=== PATIENT | male | born 1970 | race Caucasian/White ===

== ENCOUNTER 2021-02-02 07:01 | Inpatient (IN) | payer BC, SELFPAY ==
[2021-02-02] VITALS (23 sets, daily range): BP systolic 107–141; BP diastolic 65–81; PULSE 68–86; RESP 12–21; TEMP 35.6–37.1; O2SAT 93–100
--- NOTE | ~2021-02-02 | CT_ITS ---
EXAMINATION: CT abdomen pelvis w con DATE: 02/02/2021 08:40 INDICATION: Lower abdominal pain TECHNIQUE: Computed tomography (CT) of the abdomen and pelvis was performed with 100 cc Omnipaque 350 intravenous contrast. The dose-length product was 211.89 mGy-cm. Automated exposure control and iter ative reconstruction technique were employed. COMPARISON: None. FINDINGS: There is moderate free air, suspicious for bowel perforation. Heart size normal. No signifi cant pleural or pericardial effusion. Gallbladder is present. The liver, spleen, pancreas, adrenal gl ands and kidneys are unremarkable. There is a large amount of retained fecal material throughout the colon. No definite obstruction. There is ascites. There appears to be extraluminal fluid and mottled material in the pelvis, suspicious for localized perforation and this area. No discrete abscess is id entified.. There is bibasilar dependent atelectasis. Moderate lower lumbar spondylosis with spinal st enosis at L5-S1. IMPRESSION: 1. Mottled gas and fluid in the pelvis with moderate free intraperitoneal air, compatible with perfor ation. There is ascites. Exact site of perforation is not identified. 2: Fecal impaction of the colon. Dr. Junaid Ying discussed with Dr. Mirta Moser MD at 02/02/2021 08:44 CDT. Reviewed, dictated and finalized at location A. IMPRESSION: 1. Mottled gas and fluid in the pelvis with moderate free intraperitoneal air, compatible with perforation. There is ascites. Exact site of perforation is not identified. 2: Fecal impaction of the colon. Dr. Junaid Ying discussed with Dr. Mirta Moser MD at 02/02/2021 08:44 CD T.
--- NOTE | ~2021-02-02 | XR_ITS ---
EXAMINATION: CYSTOGRAM DATE: 02/05/2021 08:33 INDICATION: Recent colonic perforation with adhesions to the bladder and contrast during surgery. TECHNIQUE: Initial inspector and hand packager radiograph of the pelvis was performed. There was retrograde administration of Omnipaque 350 mixed with saline contrast into patient's existing Oconnor catheter. Fluoroscopic anna ges of the pelvis were obtained. A post-void image was also obtained. A total of 1 overhead radiograp hs and 13 fluoroscopic images were recorded. Fluoroscopy exposure time was 0.3 minutes. Total DAP was 5.2 mGycm^2 FINDINGS: Freelance Programmer/App Developer image demonstrates a surgical drain in the right hemipelvis. Midline skin javier. There is sca ttered soft tissue gas in the pelvis likely related to the recent prior surgery. Subsequent images de monstrate contrast filling of the bladder which demonstrates normal contour with no mucosal irregular ities or extraluminal contrast extravasation. No vesicoureteral reflux observed. IMPRESSION: Normal-appearing bladder with no evident bladder leak. Reviewed, dictated and finalized at location A.
[2021-02-02 07:59] LABS: Basophils Absolute Auto 0.1 K/mm3 (0.0-0.1); Basophils Percent Auto 0.4 % (0.2-1.2); Hematocrit 35.3 % (42.0-52.0); Hemoglobin 11.6 g/dL (14.0-18.0); Immature Granulocyte Absolute 0.08 K/mm3 (0.00-0.031); Immature Granulocyte Percent A 0.3 % (0-0.5); Lymphocytes Absolute Auto 0.78 K/mm3 (0.9-3.2); Lymphocytes Percent Auto 3.1 % (18.3-44.2); Mean Corpuscular HGB Conc 32.9 g/dl (32-36); Mean Corpuscular Hemoglobin 31.3 pg (26-34); Mean Corpuscular Volume 95.1 fl (80-100); Mean Platelet Volume 9.4 fl (7.4-10.4); Monocytes Percent Auto 3.7 % (2.6-8.5); Neutrophils Absolute Auto 23.6 K/mm3 (1.3-6.7); Neutrophils Percent Auto 92.5 % (45.5-73.1); Platelet Count Result 789 k/mm3 (150-375); Red Blood Count 3.71 M/mm3 (4.6-6.20); Red Cell Distribution Width 13.9 % (11.5-14.5); White Blood Count 25.5 K/mm3 (4.5-10.0)
[2021-02-02 08:13] LABS: Alanine Aminotransferase 23 U/L (4-50); Albumin Level 3.8 g/dL (3.5-5.1); Alkaline Phosphatase 82 U/L (38-126); Anion Gap 12 mmol/L (8-16); Aspartate Amino Transferase 41 U/L (17-59); Bilirubin,Total 0.8 mg/dL (0.2-1.3); Blood Urea Nitrogen 26 mg/dL (9-20); Calcium 8.8 mg/dL (8.4-10.2); Carbon Dioxide 23 mmol/L (22-30); Chloride 97 mmol/L (98-107); Estimated CRCL calculation 92 ml/min; Estimated Glomerular Filt Rate > 60; Glucose 143 mg/dL (75-110); Lipase 11 U/L (23-300); Potassium 4.6 mmol/L (3.4-5.0); Sodium 132 mmol/L (137-145)
--- NOTE | 2021-02-02 08:26 | ED.ABDPAIN ---
HPI - Abdominal Pain General Chief Complaint: Abdominal Pain Stated Complaint: bowel blockage Time Seen by Provider: 02/02/21 07:37 Source: patient and RN notes reviewed Mode of arrival: ambulatory Limitations: no limitations History of Present Illness HPI narrative: This is a 50 year old male who presents for evaluation of lower abdominal pain. He states he has pain daily for 6 months that he describes as gas pain . Last night he developed more severe pain and it has been constant. He had an episode of nausea and vomiting with his pain last night. He is unsure if he had fever or chills. He reports history of diverticulosis and constipation. He states he has a dry roller at [facility] and he reports having a colonoscopy performed in July. He also reports he had a CT scan performed within that last month and he was told he was constipated. He states he was prescribed Linzess but he was unable to get it filled due to an insurance issue. Pain currently in located in lower abdomen and he rates his pain 10/10. Related Data Allergies Allergy/AdvReac Type Severity Reaction Status Date / Time No Known Allergies Allergy Verified 02/02/21 07:29 Review of Systems Review of Systems: All systems reviewed & are unremarkable except as noted in HPI and below PMFSH Past Medical History Medical History Diverticulitis Diverticulosis Surgical History Surgical History S/P cervical spinal fusion Social History Social History Smoking packs per day: 1 Smoking cigarettes per day: 20.0 Smoking status: Current every day smoker Exam Const: General: alert Nutritional Appearance: thin Orientation/consciousness: patient oriented x3 Resp: Effort & Inspection: normal respiratory effort, no retractions and no use of accessory muscles Auscultation: clear to auscultation bilaterally Cardio: Rate: regular rate Rhythm: regular rhythm Heart sounds: no murmurs GI: Inspection: distended GI Palp: Yes Soft to palpation, Yes Tenderness to palpation present (GI) (Diffuse), Yes Guarding due to palpation present (GI) and No Rigid due to palpation Auscultation: normal bowel sounds Skin: General skin exam: normal color Rashes: no rashes Neuro: General: patient oriented x3, moves all extremities and CN's II-XI intact bilaterally Psych: Mental Status: mental status grossly normal Affect: normal affect Course Reevaluation(s) Reevaluation #1: Dr. Villatoro came down to ER to evaluated patient for bowel perforation. PAtient has received antibiotics. HE will take patient to OR. Date: 02/02/21 Time: 09:40 Vital Signs Vital signs: Vital Signs Temperature 97.8 F 02/02/21 07:22 Pulse Rate 72 02/02/21 07:22 Respiratory Rate 18 02/02/21 07:22 Blood Pressure 107/71 02/02/21 07:22 Pulse Oximetry 97 02/02/21 07:22 Temperature 98.2 F 02/02/21 13:10 Pulse Rate 74 02/02/21 13:55 Respiratory Rate 13 02/02/21 13:55 Blood Pressure 134/75 02/02/21 13:55 Pulse Oximetry 96 02/02/21 13:55 MDM - Abdominal Pain Lab Data Attestation: I reviewed the patient's lab results. Result diagrams: 02/02/21 07:53 02/02/21 07:53 Labs: Lab Results 02/02/21 02/02/21 02/02/21 Range/Units 07:53 07:53 08:28 WBC 25.5 H (4.5-10.0) K/mm3 RBC 3.71 L (4.6-6.20) M/mm3 Hgb 11.6 L (14.0-18.0) g/dL Hct 35.3 L (42.0-52.0) % MCV 95.1 (80-100) fl MCH 31.3 (26-34) pg MCHC 32.9 (32-36) g/dl RDW 13.9 (11.5-14.5) % Plt Count 789 H (150-375) k/mm3 MPV 9.4 (7.4-10.4) fl Immature Gran % (Auto) 0.3 (0-0.5) % Neut % (Auto) 92.5 H (45.5-73.1) % Lymph % (Auto) 3.1 L (18.3-44.2) % [place] % (Auto) 3.7 (2.6-8.5) % Eos % (Auto) 0.0 (0-4.4) % Baso % (Auto) 0.4
[2021-02-02] MEDS: LACTATED RINGERS 1,000 ML 999 ML IV CONT (08:41)
[2021-02-02] MEDS: ONDANSETRON INJ 4 MG/2 ML VIAL IV PUSH (08:41)
[2021-02-02] MEDS: MORPHINE SULFATE (*CRX) 4 MG/ML INJ IV PUSH (08:42)
[2021-02-02 08:44] LABS: Lactic Acid Reflex 2.2 mmol/L (0.7-2.1)
--- NOTE | 2021-02-02 09:24 | WPDANESEPP ---
Anes - Eval Pre Procedure Date/Time: 02/02/21 09:24 Pre Op Diagnosis: bowel blockage Patient Data Age: 50 Gender: M Height: 1.73 m Weight: 60.45 kg Last Vital Signs Temp 36.6 C 02/02/21 07:22 Pulse 72 02/02/21 07:22 Resp 18 02/02/21 07:22 BP 107/71 02/02/21 07:22 Pulse Ox 97 02/02/21 07:22 Allergies Allergy/AdvReac Type Severity Reaction Status Date / Time No Known Allergies Allergy Verified 02/02/21 07:29 Laboratory Tests 02/02/21 02/02/21 02/02/21 07:53 07:53 08:28 WBC 25.5 K/mm3 H K/mm3 (4.5-10.0) RBC 3.71 M/mm3 L M/mm3 (4.6-6.20) Hgb 11.6 g/dL L g/dL (14.0-18.0) Hct 35.3 % L % (42.0-52.0) MCV 95.1 fl fl (80-100) MCH 31.3 pg pg (26-34) MCHC 32.9 g/dl g/dl (32-36) RDW 13.9 % % (11.5-14.5) Plt Count 789 k/mm3 H k/mm3 (150-375) MPV 9.4 fl fl (7.4-10.4) Immature Gran % (Auto) 0.3 % % (0-0.5) Neut % (Auto) 92.5 % H % (45.5-73.1) Lymph % (Auto) 3.1 % L % (18.3-44.2) [place] % (Auto) 3.7 % % (2.6-8.5) Eos % (Auto) 0.0 % % (0-4.4) Baso % (Auto) 0.4 % % (0.2-1.2) Lymph # (Auto) 0.78 K/mm3 L K/mm3 (0.9-3.2) [place] # (Auto) 1.0 K/mm3 H K/mm3 (0.1-0.6) Eos # (Auto) 0.0 K/mm3 K/mm3 (0-0.3) Baso # (Auto) 0.1 K/mm3 K/mm3 (0.0-0.1) Abs Immat Gran (auto) 0.08 K/mm3 H K/mm3 (0.00-0.031) Absolute Neuts (auto) 23.6 K/mm3 H K/mm3 (1.3-6.7) Absolute Nucleated RBC 0.0 K/mm3 K/mm3 (0.0-0.012) Nucleated RBC % 0.0 % % (0.0-0.2) Sodium 132 mmol/L L mmol/L (137-145) Potassium 4.6 mmol/L mmol/L (3.4-5.0) Chloride 97 mmol/L L mmol/L (98-107) Carbon Dioxide 23 mmol/L mmol/L (22-30) Anion Gap 12 mmol/L mmol/L (8-16) BUN 26 mg/dL H mg/dL (9-20) Creatinine 0.70 mg/dL mg/dL (0.7-1.3) Estim Creat Clear Calc 92 ml/min ml/min Estimated GFR > 60 (59 - ) Glucose 143 mg/dL H mg/dL (75-110) Lactic Acid 2.2 mmol/L H mmol/L (0.7-2.1) Calcium 8.8 mg/dL mg/dL (8.4-10.2) Total Bilirubin 0.8 mg/dL mg/dL (0.2-1.3) AST 41 U/L U/L (17-59) ALT 23 U/L U/L (4-50) Alkaline Phosphatase 82 U/L U/L (38-126) Total Protein 8.0 g/dL g/dL (6.3-8.2) Albumin 3.8 g/dL g/dL (3.5-5.1) Lipase 11 U/L L U/L (23-300) Patient hx anesthesia problems: none Family hx anesthesia problems: none [facility] Past Medical History Medical History Diverticulitis Diverticulosis Surgical History Surgical History S/P cervical spinal fusion Social History Social History Smoking packs per day: 1 Smoking cigarettes per day: 20.0 Smoking status: Current every day smoker Exam Day of Procedure 02/02/21 09:24
--- NOTE | 2021-02-02 09:24 | PM.IMHP ---
H&P: HPI History of Present Illness Date/Time: 02/02/21 09:24 Chief Complaint: Severe lower abdominal pain Narrative: patient is a 50-year-old man whose had problems with abdominal pain in the left lower quadrant and chronic constipation for over a year. He had a colonoscopy at [facility] last July. He reports that there was a narrowing such that the colonoscope was not able to be advanced all the way through the colon. He had a contrast enema following this procedure. To his knowledge, there was no malignancy. He continued to have problems and was seen again by his sustainability consultant, Dr. Janet Null about 6 weeks ago. He was started on Linzess but was unable to get this medication prescribed due to documentation issues. He has continued to have left lower quadrant pain but last night the pain became much worse. It started in the entire lower abdomen and now involves the entire abdomen. He has had no nausea or vomiting. He has had no fever. He continues to have severe pain. He came to the emergency room. He was noted to have a rigid abdomen suspicious for bowel perforation. His CT scan showed fecal impaction throughout the colon. There was evidence of free intraperitoneal air and a distal colonic [place]ation[place] [id number]. He was seen in the emergency room and has an acute surgical abdomen. I suspect he has fecal peritonitis status and colonic obstruction. He is admitted now to be taken emergently to surgery for laparotomy, resection, and colostomy. Review of Systems Review of Systems: All systems reviewed & are unremarkable except as noted in HPI and below Constitutional: Constitutional: Denies chills and Denies fever(s) Cardiovascular: Cardiovascular: Denies chest pain, Denies diaphoresis, Denies dyspnea and Denies paroxysmal nocturnal dyspnea Respiratory: Respiratory: Denies chest congestion, Denies cough and Denies dyspnea Gastrointestinal: Gastrointestinal: Reports as per HPI, Reports abdominal pain and Reports constipation Integumentary/Breasts: Skin/Breast: Denies lesions and Denies rash [facility] Past Medical History Medical History Diverticulitis Diverticulosis Surgical History Surgical History S/P cervical spinal fusion Social History Social History (Updated 02/02/21 @ 08:31 by Mirta Moser MD) Smoking packs per day: 1 Smoking cigarettes per day: 20.0 Smoking status: Current every day smoker Meds Home Medications and Allergies Allergies Allergy/AdvReac Type Severity Reaction Status Date / Time No Known Allergies Allergy Verified 02/02/21 07:29 Vital Signs Vital Signs - 24 hr 02/02/21 07:22 Temperature 36.6 C Pulse Rate 72 Respiratory Rate 18 Blood Pressure 107/71 Pulse Oximetry 97 Exam Const: General: cooperative, healthy appearing, alert, awake, ill appearing and uncomfortable; No confusion Nutritional Appearance: underweight Orientation/consciousness: patient oriented x3 and No confusion HENMT: Head: normocephalic, atraumatic, no contusions and no scalp lesions Ears: external ears normal General nose exam: Normal external nose present Face and sinus: face symmetric and dry mucous membranes Mouth: Yes Normal oral and palatal mucosa present and Yes tongue normal Throat: posterior oropharynx normal Eyes: Conjunctivae: conjunctivae normal Sclera: sclerae normal Pupils: Equal, round and reactive pupils present EOM: EOMs intact bilaterally Neck: Neck: normal visual inspection, no lymphadenopathy, trachea midline, supple, nontender and no JVD Thyroid: abnormal thyroid Resp: Effort & Inspection: normal respiratory effort Auscultation: clear to auscultation bilaterally Cardio: Rate: regular rate Rhythm: regular rhythm GI: Inspection: non-distended, scaphoid and no scars GI Palp: Yes Firmness to palpation present (GI),
--- NOTE | 2021-02-02 09:31 | WPDANESEFPP ---
Anes - Eval Final PreProcedure Day of Procedure 02/02/21 09:31 Patient weight: normal Heart: regular rate and rhythm Lungs: clear to auscultation and normal air movement Airway: Mallampati scale class II Neurological: alert and oriented Last oral intake: >/= 8 hours ASA classification: III Emergent: yes Anesthetic plan: proceed Anesthesia type and monitoring: general ETT Informed Consent: The patient's anesthetic plan and its attendant risks and benefits were discussed with the patient/family/POA. Questions were solicited and answers provided to the satisfaction of the patient/family/POA.
--- NOTE | 2021-02-02 09:36 | WPDHPUPDATE1 ---
History and Physical Update Update Date/Time: 02/02/21 09:36 History and Physical has been reviewed, including an updated exam of the patient. There are NO changes in the patient's condition. Risks, benefits, and alternatives have been discussed and questions answered. Patient agrees to proceed with procedure.
[2021-02-02] MEDS: LACTATED RINGERS 1,000 ML 150 ML IV CONT ×2 (09:41→16:22)
[2021-02-02] MEDS: LACTATED RINGERS 1,000 ML 30 ML IV CONT ×2 (10:30→13:10)
[2021-02-02 11:33] LABS: Reflex Lactic Acid Yes or No Add Lactic
--- NOTE | 2021-02-02 13:31 | W.PM.PROC2 ---
Procedure Note - Detailed Date of Procedure 02/02/21 Pre-op Diagnosis colonic perforation, Colon stricture, fecal peritonitis Post-op Diagnosis same Procedure Performed sigmoid colon resection with end descending colostomy, Nader procedure; Incidental appendectomy Surgeon Beck Villatoro MD Clinical Rehab Specialist Mina FITZPATRICK Anesthesia general Indications patient is a 50-year-old man with history of a colon stricture from colonoscopy attempt last July. He has had chronic left lower quadrant pain and constipation. His pain got much worse last night. It spread to the entire abdomen. He came to the emergency room this morning. He was noted to have a rigid [place] [id number] [place] scan showed evidence of fecal impaction with colon perforation. There were several pockets of free air. He is taken now to surgery emergently for fecal peritonitis and colonic perforation. Findings There was a small opening leaking fecal material in the distal descending colon. There was a severe stricture in the distal sigmoid colon that was the source of the constipation and partial colonic obstruction. The sigmoid and rectum were densely adherent to the urinary bladder. The sigmoid stricture could not be determined to be benign or malignant. Description of Procedure The patient was taken to surgery and induced into general anesthesia. Oconnor catheter was placed. Nasogastric tube was placed. The entire abdomen was prepped and draped. A midline incision was made starting just above the umbilicus. This extended down to the lower abdomen. We dissected through the midline and entered the peritoneal cavity. Fecal ascites was noted. The incision was extended towards the pubis. Incision was also extended cephalad. The bowel was quite distended and full of stool. We initially suctioned the fecal ascites from the abdomen. There was no obvious source of the stool leakage at 1st. I then irrigated the abdomen thoroughly with several L of warm saline. This allowed much better visualization and also got rid of a lot of the peritoneal contamination from stool. I then set about examining the entire colon. Although packed with stool the transverse colon was negative. The right colon had a fair amount of stool but was also negative. The sigmoid was quite stuck in the pelvis. The descending colon showed a small, 1 x 2 mm opening that was leaking fecal material. I over sewed this with a single suture of 4 0 silk in Lembert fashion. This seemed to control the fecal contamination source. I then irrigated the abdomen again with several L of warm saline. We divided the lateral peritoneal attachments to the descending colon and worked our way towards the sigmoid and rectum. The descending and proximal sigmoid were mobilized on their mesentery. The left ureter was found and dissected. It was encircled with a red vessel loop so it could easily be identified again as needed. As we continued towards the pelvis the dissection got more difficult. Slow tedious dissection of peritoneum and urinary bladder off the distal sigmoid was carried out. This was a chronic adhesion and inflammation not the acute peritonitis. I was concerned there may be a fistula to the urinary bladder. Eventually none was found. What was found was the distal sigmoid had doubled back and was densely adherent to more proximal sigmoid and also attached to the left pelvic sidewall. We continued dissecting this and dissecting the urinary bladder off the sigmoid. It was difficult to identify the anatomy due to the chronic inflammation as well as the associated acute peritonitis. Eventually, the doubled back sigmoid was freed to an extent that I was able to divide the distal sigmoid from the upper rectum with a contour stapler. It was unclear whether this adhesion was due to a malignancy or a benign process. I chose to resect the sigmoid with a cancer type resection in case this was the pathology.
[2021-02-02] MEDS: fentaNYL CITRATE INJ (*CRX) 100 MCG/2 ML VIAL 25 MCG IV PUSH ×4 (13:46→14:09)
--- NOTE | 2021-02-02 16:00 | ADMGEN ---
This patient, Eric Karimi, was admitted to Medical Room 252-. Patient/family oriented to hospital policies and general routines including ID bracelet, bed and alarms, visiting hours, pain management, procedures, bathroom and other care routines, personal items, smoking policy, room service/diet, and visiting hours. Information on how to activate the Rapid Response Team has been discussed. Patient/Family are encouraged to report perceived risks to care and to ask questions if they do not understand what they are told or what they should do.
[2021-02-02] MEDS: MORPHINE SULFATE PCA (*CRX) 30 MG/30 ML SYR IV CONT ×2 (16:24→21:00)
[2021-02-02] MEDS: ENOXAPARIN 40 MG/0.4 ML SYRINGE SUB-Q (16:39)
[2021-02-02] MEDS: IBUPROFEN IV 800 MG/200 ML 800 MG/200 ML BAG 400 MG IVPB (17:06)
[2021-02-02] MEDS: FAMOTIDINE 20 MG/2 ML VIAL IV PUSH (20:58)
[2021-02-03] VITALS (10 sets, daily range): BP systolic 100–128; BP diastolic 49–66; PULSE 65–69; RESP 16–20; TEMP 36.2–36.6; O2SAT 96–100; BMI 21.1
[2021-02-03] MEDS: LACTATED RINGERS 1,000 ML 150 ML IV CONT ×4 (00:13→18:51)
[2021-02-03] MEDS: IBUPROFEN IV 800 MG/200 ML 800 MG/200 ML BAG 400 MG IVPB ×5 (00:17→23:40)
[2021-02-03] MEDS: MORPHINE SULFATE PCA (*CRX) 30 MG/30 ML SYR IV CONT ×4 (03:38→21:49)
[2021-02-03 05:39] LABS: Basophils Absolute Auto 0.1 K/mm3 (0.0-0.1); Basophils Percent Auto 0.4 % (0.2-1.2); Hematocrit 29.8 % (42.0-52.0); Hemoglobin 9.8 g/dL (14.0-18.0); Immature Granulocyte Absolute 0.14 K/mm3 (0.00-0.031); Immature Granulocyte Percent A 0.5 % (0-0.5); Lymphocytes Absolute Auto 1.64 K/mm3 (0.9-3.2); Lymphocytes Percent Auto 6.1 % (18.3-44.2); Mean Corpuscular HGB Conc 32.9 g/dl (32-36); Mean Corpuscular Hemoglobin 30.9 pg (26-34); Mean Platelet Volume 9.3 fl (7.4-10.4); Monocytes Absolute Auto 1.5 K/mm3 (0.1-0.6); Monocytes Percent Auto 5.6 % (2.6-8.5); Neutrophils Absolute Auto 23.6 K/mm3 (1.3-6.7); Neutrophils Percent Auto 87.4 % (45.5-73.1); Platelet Count Result 604 k/mm3 (150-375); Red Blood Count 3.17 M/mm3 (4.6-6.20)
[2021-02-03 05:48] LABS: Anion Gap 5 mmol/L (8-16); Blood Urea Nitrogen 21 mg/dL (9-20); Calcium 8.2 mg/dL (8.4-10.2); Carbon Dioxide 25 mmol/L (22-30); Chloride 101 mmol/L (98-107); Estimated CRCL calculation 73 ml/min; Estimated Glomerular Filt Rate > 60; Glucose 102 mg/dL (75-110); Potassium 4.4 mmol/L (3.4-5.0); Sodium 131 mmol/L (137-145)
--- NOTE | 2021-02-03 07:00 | PC.NURSE ---
Novelty Chain Maker unable to document sedation assessment at time of completion, unable to chart at scheduled times. 02/03/2021 0700- Breathing effort, depth, and pattern normal, Lung sounds are clear to auscultation respirations 20 PT is alert and awake and talkative. No side effect observed. Pt understands the use of STUMMEL SELECTOR pump.
--- NOTE | 2021-02-03 08:05 | PM.PNGS ---
Progress Note: A&P Assessment and Plan (1) Fecal peritonitis: Code(s): K65.8 - Other peritonitis Status: Acute Assessment and Plan: status post resection sigmoid and some of the descending colon yesterday. Site of perforation was resected with the specimen. Descending colostomy was performed. Has good stoma output this morning. No signs of Manny turned of bowel function as yet. Patient feels much better. Labs look good. Continue Oconnor catheter. Up in chair up walking today. Leave NG until signs of bowel function returned. (2) Colon perforation: Code(s): K63.1 - Perforation of intestine (nontraumatic) Status: Acute Assessment and Plan: Due to stricture and large fecal retention or impaction. (3) Colon stricture: Code(s): K56.699 - Other intestinal obstruction unspecified as to partial versus complete obstruction Status: Chronic Assessment and Plan: Pathology pending. Could be diverticular or possibly a malignancy. Difficult to dissect this part of the distal sigmoid off the urinary bladder. Leave Oconnor and get cystogram before removed. Subjective Subjective Date/Time Seen: 02/03/21 08:05 Post Op day: 1 Patient reports: no new complaints, feels better, bowel movement ( Large stoma output) and afebrile Exam GI: Inspection: incision ( looks good, no hematoma or purulence.), scaphoid and other ( Large colostomy output) GI Palp: Yes Soft to palpation and Yes Tenderness to palpation present (GI) Auscultation: absent bowel sounds Objective Data Vital Signs Vital Signs: Vital Signs - 24 hr 02/02/21 09:50 02/02/21 13:10 02/02/21 13:25 Temperature 36.8 C Pulse Rate 68 84 78 Respiratory Rate 18 20 21 H Blood Pressure 119/71 122/81 137/80 Pulse Oximetry 100 98 98 02/02/21 13:41 02/02/21 13:55 02/02/21 14:10 Temperature Pulse Rate 72 74 80 Respiratory Rate 20 13 20 Blood Pressure 141/76 H 134/75 128/76 Pulse Oximetry 96 96 94 02/02/21 14:25 02/02/21 14:40 02/02/21 15:25 Temperature 36.4 C L Pulse Rate 78 84 82 Respiratory Rate 14 12 20 Blood Pressure 123/69 124/80 135/77 Pulse Oximetry 94 95 94 02/02/21 15:40 02/02/21 16:10 02/02/21 16:24 Temperature 35.9 C L 35.6 C L Pulse Rate 84 81 Respiratory Rate 20 20 17 Blood Pressure 139/79 127/75 Pulse Oximetry 94 96 94 02/02/21 16:29 02/02/21 17:00 02/02/21 17:10 Temperature 36.8 C Pulse Rate 86 Respiratory Rate 16 Blood Pressure 126/74 Pulse Oximetry 93 93 96 02/02/21 17:30 02/02/21 18:35 02/02/21 19:38 Temperature Pulse Rate Respiratory Rate 18 16 16 Blood Pressure Pulse Oximetry 93 95 95 02/02/21 21:00 02/02/21 22:00 02/02/21 22:38 Temperature 37.1 C Pulse Rate 71 Respiratory Rate 16 21 H Blood Pressure 112/65 Pulse Oximetry 97 100 100 02/02/21 23:00 02/03/21 01:00 02/03/21 03:00 Temperature Pulse Rate Respiratory Rate 16 18 16 Blood Pressure Pulse Oximetry 100 98 100 02/03/21 05:00 02/03/21 06:00 Temperature 36.2 C L Pulse Rate 65 Respiratory Rate 16 20 Blood Pressure 128/66 Pulse Oximetry 99 98 Intake/Output Intake/Output: Intake & Output 01/31/21 02/01/21 02/02/21 02/03/21 23:59 23:59 23:59 23:59 Intake Total 2680 1480 Output Total 1000 1210 Balance 1680 270 Meds/Results Medications: Active Medications Generic Name Dose Route Start Last Admin Trade Name Willisq PRN Reason Stop Dose Admin Enoxaparin Sodium 40 mg 02/03/21 09:00 Enoxaparin 40 Mg/0.4 Ml Syringe SUB-Q DAILY MINDY Famotidine 20 mg 02/02/21 21:00 02/02/21 20:58 Famotidine 20 Mg/2 Ml Vial IV PUSH 20 mg Q12HR MINDY Administration Piperacillin/Tazobactam/Dextrose 3.375 gm in 50 mls @ 100 mls/hr 02/02/21 15:00 02/03/21 03:29 Zosyn 3.375 Gm/D5w 50ml Pm IVPB Infused Q6H MINDY Infusion Ibuprofen 800 mg in 200 mls @ 400 mls/hr 02/02/21 18:00 06/28/21 06:16 Caldolor 800 Mg/200 Ml IVPB Inf
[2021-02-03] MEDS: ENOXAPARIN 40 MG/0.4 ML SYRINGE SUB-Q (08:22)
[2021-02-03] MEDS: FAMOTIDINE 20 MG/2 ML VIAL IV PUSH ×2 (08:22→20:56)
--- NOTE | 2021-02-03 09:00 | PC.NURSE ---
Lacquer Sprayer unable to document sedation assessment at time of completion, unable to chart at scheduled times. 02/03/2021 0900- Breathing effort, depth, and pattern normal, Lung sounds are clear to auscultation respirations 2 16 PT is alert and awake and talkative. No side effect observed. Pt understands the use of NEWS CLERK pump.
--- NOTE | 2021-02-03 10:43 | P.PNAN_ITS ---
Anes - Prog Note Post-Op Date/Time: 02/03/21 10:43 Cardiovascular status: normal Respiratory status: normal Airway patency: baseline Mental status: baseline Post-Op hydration status: normal Vital Signs: Last Vital Signs Temp 36.2 C L 02/03/21 06:00 Pulse 65 02/03/21 06:00 Resp 20 02/03/21 06:00 BP 128/66 02/03/21 06:00 Pulse Ox 98 02/03/21 06:00 Pain Score (VAS): 0/10. Patient resting in bed at time of assessment, appears comfortable. I/O: Intake & Output 02/02/21 02/03/21 02/03/21 23:59 07:59 15:59 Intake Total 1330 1480 30 Output Total 835 1210 40 Balance 495 270 -10 Laboratory Tests 02/03/21 05:25 02/03/21 05:25 02/02/21 02/03/21 02/03/21 10:15 05:25 05:25 WBC 27.0 H RBC 3.17 L Hgb 9.8 L Hct 29.8 L MCV 94.0 MCH 30.9 MCHC 32.9 RDW 14.0 Plt Count 604 H MPV 9.3 Immature Gran % (Auto) 0.5 Neut % (Auto) 87.4 H Lymph % (Auto) 6.1 L [place] % (Auto) 5.6 Eos % (Auto) 0.0 Baso % (Auto) 0.4 Lymph # (Auto) 1.64 [place] # (Auto) 1.5 H Eos # (Auto) 0.0 Baso # (Auto) 0.1 Abs Immat Gran (auto) 0.14 H Absolute Neuts (auto) 23.6 H Absolute Nucleated RBC 0.0 Nucleated RBC % 0.0 Sodium 131 L Potassium 4.4 Chloride 101 Carbon Dioxide 25 Anion Gap 5 L BUN 21 H Creatinine 0.90 Estim Creat Clear Calc 73 Estimated GFR > 60 Glucose 102 Calcium 8.2 L Blood Type O Positive Antibody Screen Negative Post-procedural complaints: none Patient Feedback: Patient satisfied with anesthetic care.
--- NOTE | 2021-02-03 11:00 | PC.NURSE ---
Lode Miner Blasting unable to document sedation assessment at time of completion, unable to chart at scheduled times. 02/03/2021 1100- Breathing effort, depth, and pattern normal, Lung sounds are clear to auscultation respirations 20 PT is alert and awake and talkative. No side effect observed. Pt understands the use of AIRCRAFT ENGINEER pump.
--- NOTE | 2021-02-03 13:00 | PC.NURSE ---
Lead Level Designer unable to document sedation assessment at time of completion, unable to chart at scheduled times. 02/03/2021 1300- Breathing effort, depth, and pattern normal, Lung sounds are clear to auscultation. PT is alert and awake and talkative. No side effect observed. Pt understands the use of EVENT DESIGNER pump.
[2021-02-04] VITALS (10 sets, daily range): BP systolic 104–110; BP diastolic 54–62; PULSE 58–64; RESP 16–21; TEMP 36.1–37.1; O2SAT 93–100
[2021-02-04] MEDS: LACTATED RINGERS 1,000 ML 150 ML IV CONT ×4 (02:19→23:53)
[2021-02-04 05:55] LABS: Anion Gap 4 mmol/L (8-16); Basophils Absolute Auto 0.1 K/mm3 (0.0-0.1); Basophils Percent Auto 0.4 % (0.2-1.2); Blood Urea Nitrogen 16 mg/dL (9-20); Calcium 7.9 mg/dL (8.4-10.2); Carbon Dioxide 28 mmol/L (22-30); Chloride 101 mmol/L (98-107); Eosinophils Absolute Auto 0.4 K/mm3 (0-0.3); Eosinophils Percent Auto 2.1 % (0-4.4); Estimated CRCL calculation 85 ml/min; Estimated Glomerular Filt Rate > 60; Glucose 71 mg/dL (75-110); Hematocrit 27.8 % (42.0-52.0); Immature Granulocyte Absolute 0.11 K/mm3 (0.00-0.031); Immature Granulocyte Percent A 0.5 % (0-0.5); Lymphocytes Absolute Auto 1.47 K/mm3 (0.9-3.2); Mean Corpuscular HGB Conc 32.4 g/dl (32-36); Mean Corpuscular Hemoglobin 30.7 pg (26-34); Mean Corpuscular Volume 94.9 fl (80-100); Mean Platelet Volume 9.6 fl (7.4-10.4); Monocytes Absolute Auto 1.6 K/mm3 (0.1-0.6); Monocytes Percent Auto 7.7 % (2.6-8.5); Neutrophils Absolute Auto 17.4 K/mm3 (1.3-6.7); Neutrophils Percent Auto 82.3 % (45.5-73.1); Platelet Count Result 573 k/mm3 (150-375); Potassium 4.3 mmol/L (3.4-5.0); Red Blood Count 2.93 M/mm3 (4.6-6.20); Red Cell Distribution Width 13.9 % (11.5-14.5); Sodium 133 mmol/L (137-145); White Blood Count 21.1 K/mm3 (4.5-10.0)
[2021-02-04] MEDS: IBUPROFEN IV 800 MG/200 ML 800 MG/200 ML BAG 400 MG IVPB ×4 (05:56→23:51)
[2021-02-04] MEDS: MORPHINE SULFATE PCA (*CRX) 30 MG/30 ML SYR IV CONT ×3 (06:21→22:36)
[2021-02-04] MEDS: FAMOTIDINE 20 MG/2 ML VIAL IV PUSH ×2 (09:33→20:34)
[2021-02-04] MEDS: ENOXAPARIN 40 MG/0.4 ML SYRINGE SUB-Q (09:33)
--- NOTE | 2021-02-04 13:43 | PM.PNGS ---
Progress Note: A&P Assessment and Plan (1) Fecal peritonitis: Code(s): K65.8 - Other peritonitis Status: Acute Assessment and Plan: POD2 sigmoid resection and descending colostomy. Colostomy continues to have some soft stool output, but nearly absent bowel sounds. Pain is improving. WBC trending down. Incision looks good, continue daily gauze dressing changes. Continue broad-spectrum IV antibiotics. Continue NG tube decompression and bowel rest. Increase activity and walking the halls. Consider switching FLIGHT CREW TIME CLERK pump to IV push Morphine PRN. Will discuss removing Oconnor with Dr. Membreno, patient is eager for this to be discontinued - sigmoid was adhered to the urinary bladder and was difficult to dissect during surgery, would plan to get a cystogram before removing. (2) Colon perforation: Code(s): K63.1 - Perforation of intestine (nontraumatic) Status: Acute Assessment and Plan: Continue broad-spectrum IV abx. Trend labs. (3) Colon stricture: Code(s): K56.699 - Other intestinal obstruction unspecified as to partial versus complete obstruction Status: Chronic Assessment and Plan: Pathology resulted and showed a diverticular stricture with perforated diverticula and acute serositis, appendix showed acute serositis. No malignancy. I discussed the pathology in detail with the patient. Additional Plan I have discussed the plan of care with Dr. Membreno. Subjective Subjective Date/Time Seen: 02/04/21 13:43 Post Op day: 2 (Sigmoid resection, Nader procedure) Patient reports: feels better, pain is less and afebrile Interval history: Patient seen in his room this afternoon. He is sitting in bed. Reports that his pain is better controlled today and he feels he is pushing the bolus button on his FLIGHT CREW TIME CLERK less today. Has walked the halls and is tolerating getting up and moving around. Oconnor in place. No specific complaints at this time. Review of Systems Review of Systems: All systems reviewed & are unremarkable except as noted in HPI and below Constitutional: Constitutional: Reports as per HPI, Reports no additional constitutional complaints, Denies chills and Denies fever(s) Cardiovascular: Cardiovascular: Reports no additional cardiovascular complaints, Denies chest pain and Denies leg edema Respiratory: Respiratory: Reports no additional respiratory complaints, Denies cough and Denies dyspnea Gastrointestinal: Gastrointestinal: Reports as per HPI and Reports no additional gastrointestinal complaints Exam Const: General: comfortable, no acute distress, alert and awake Orientation/consciousness: patient oriented x3 Resp: Effort & Inspection: normal respiratory effort Auscultation: clear to auscultation bilaterally Cardio: Rate: regular rate Rhythm: regular rhythm GI: Inspection: non-distended GI Palp: Yes Soft to palpation, Yes Tenderness to palpation present (GI) (diffusely tender but reportedly improving) and No Guarding due to palpation present (GI) Auscultation: Hypoactive bowel sounds present (very hypoactive) Rectal Exam: deferred Other: MARILIN drain with slightly cloudy serous drainage Colostomy with moderate amount of soft brown stool Midline incision with javier intact and 3 separate small openings where edges are not approximated, per the patient he saw a few javier that had come out on his previous dressing. Minimal ecchymosis, no erythema or induration, no purulent drainage. Scant amount of serosanguineous drainage on dressing. Skin: General skin exam: normal color Neuro: General: moves all extremities and no focal motor deficits Extrem: General: no clubbing, cyanosis or edema and no calf tenderness Psych: Mental Status: mental status grossly normal Insight: Good insight present (Psych) Judgement: Good judgement present (Psych) Objective Data Vital Signs Vital Signs: Vital Signs - 24 hr 02/03/21 14:00 02/03/21 15:11 02/03/21 17:00 Temperature 97.2 F L
[2021-02-05] MEDS: LACTATED RINGERS 1,000 ML 150 ML IV CONT (05:33)
[2021-02-05] MEDS: IBUPROFEN IV 800 MG/200 ML 800 MG/200 ML BAG 400 MG IVPB ×3 (05:33→18:02)
[2021-02-05 05:43] LABS: Basophils Absolute Auto 0.1 K/mm3 (0.0-0.1); Basophils Percent Auto 0.4 % (0.2-1.2); Eosinophils Absolute Auto 0.5 K/mm3 (0-0.3); Eosinophils Percent Auto 2.5 % (0-4.4); Hematocrit 26.1 % (42.0-52.0); Hemoglobin 8.7 g/dL (14.0-18.0); Immature Granulocyte Absolute 0.12 K/mm3 (0.00-0.031); Immature Granulocyte Percent A 0.7 % (0-0.5); Lymphocytes Absolute Auto 1.48 K/mm3 (0.9-3.2); Lymphocytes Percent Auto 8.2 % (18.3-44.2); Mean Corpuscular HGB Conc 33.3 g/dl (32-36); Mean Corpuscular Hemoglobin 30.7 pg (26-34); Mean Corpuscular Volume 92.2 fl (80-100); Mean Platelet Volume 9.4 fl (7.4-10.4); Monocytes Absolute Auto 1.6 K/mm3 (0.1-0.6); Neutrophils Absolute Auto 14.3 K/mm3 (1.3-6.7); Neutrophils Percent Auto 79.2 % (45.5-73.1); Platelet Count Result 568 k/mm3 (150-375); Red Blood Count 2.83 M/mm3 (4.6-6.20); Red Cell Distribution Width 13.7 % (11.5-14.5); White Blood Count 18.1 K/mm3 (4.5-10.0)
[2021-02-05 05:57] LABS: Anion Gap 5 mmol/L (8-16); Blood Urea Nitrogen 15 mg/dL (9-20); Calcium 7.9 mg/dL (8.4-10.2); Carbon Dioxide 26 mmol/L (22-30); Chloride 102 mmol/L (98-107); Estimated CRCL calculation 85 ml/min; Estimated Glomerular Filt Rate > 60; Glucose 64 mg/dL (75-110); Sodium 133 mmol/L (137-145)
[2021-02-05 06:00] VITALS: BP 114/61; PULSE 60; RESP 18; TEMP 36.6; O2SAT 96
[2021-02-05] MEDS: ENOXAPARIN 40 MG/0.4 ML SYRINGE SUB-Q (08:43)
[2021-02-05] MEDS: FAMOTIDINE 20 MG/2 ML VIAL IV PUSH ×2 (08:44→21:54)
[2021-02-05 09:00] VITALS: RESP 17; O2SAT 94
[2021-02-05] MEDS: DEXTROSE 50% 25 GM/50 ML SYRINGE IV PUSH (09:02)
[2021-02-05 09:38] VITALS: O2SAT 91
[2021-02-05 09:49] LABS: Glucose Point of Care 95 mg/dl (65-105)
--- NOTE | 2021-02-05 11:01 | PM.PNGS ---
Progress Note: A&P Assessment and Plan (1) Fecal peritonitis: Code(s): K65.8 - Other peritonitis Status: Acute Assessment and Plan: POD3 sigmoid resection and descending colostomy and doing well. Good colostomy output and has more bowel sounds today. Documented NG output is inaccurate considering his ice chips/water intake. Will remove NG tube and start clear liquids today. D/C TICKET PULLER and start PRN IV analgesics. Cystogram today looked good without a bladder leak. Will D/C Oconnor catheter today. Continue increasing activity, walking the halls, and IS use. (2) Colon perforation: Code(s): K63.1 - Perforation of intestine (nontraumatic) Status: Acute Assessment and Plan: Continue broad-spectrum IV abx. Trend labs. WBC continues to come down, he is afebrile. (3) Colon stricture: Code(s): K56.699 - Other intestinal obstruction unspecified as to partial versus complete obstruction Status: Chronic Assessment and Plan: Pathology resulted and showed a diverticular stricture with no malignancy. Additional Plan I have discussed the plan of care with Dr. Membreno. Subjective Subjective Date/Time Seen: 02/05/21 11:01 Post Op day: 3 (sigmoid colectomy, Nader's procedure) Patient reports: no new complaints, pain is less, bowel movement (+ostomy output) and afebrile Interval history: Patient seen this morning. He reports having nearly no abdominal pain today, which has been well controlled over the past 24 hours. He denies bloating or nausea. Per the nurse, he has had a high intake of ice chips and yesterday afternoon was found drinking water in his room. No other complaints from the patient at this time. Review of Systems Review of Systems: All systems reviewed & are unremarkable except as noted in HPI and below Constitutional: Constitutional: Reports as per HPI, Reports no additional constitutional complaints, Denies chills and Denies fever(s) Cardiovascular: Cardiovascular: Reports no additional cardiovascular complaints, Denies chest pain and Denies leg edema Respiratory: Respiratory: Reports no additional respiratory complaints, Denies cough and Denies dyspnea Gastrointestinal: Gastrointestinal: Reports as per HPI and Reports no additional gastrointestinal complaints Neurologic: Reports system reviewed and no additional complaints, except as documented, Denies Abnormal speech present and Denies focal weakness Exam Const: General: comfortable, no acute distress, alert and awake Orientation/consciousness: patient oriented x3 Resp: Effort & Inspection: normal respiratory effort Auscultation: clear to auscultation bilaterally Cardio: Rate: regular rate Rhythm: regular rhythm GI: Inspection: non-distended GI Palp: Yes Soft to palpation, Yes Tenderness to palpation present (GI) (minimal incisional tenderness), No Guarding due to palpation present (GI) and No Rebound tenderness present Auscultation: Hypoactive bowel sounds present (more bowel sounds than yesterday) Other: Midline incision with a few tiny areas with the skin edges slightly , but no erythema, induration, or purulent drainage. Minimal serosanguineous drainage on dressing. Colostomy with large amount of soft and some formed brown stool in bag. MARILIN drain with serous drainage Urinary Catheter: Urinary Catheter: patent and draining and urine clear Skin: General skin exam: normal color Neuro: General: moves all extremities and no focal motor deficits Extrem: General: no clubbing, cyanosis or edema and no calf tenderness Psych: Mental Status: mental status grossly normal Insight: Good insight present (Psych) Judgement: Good judgement present (Psych) Objective Data Vital Signs Vital Signs: Vital Signs - 24 hr 02/04/21 12:35 02/04/21 14:00 02/04/21 15:02 Temperature 98.3 F Pulse Rate 60 Respiratory Rate 16 18 17 Blood Pressure 109/59 L Pulse Oximetry 96 96 94 02/04/21 17:55 02/04/21 20:0
[2021-02-05 14:00] VITALS: BP 129/73; PULSE 72; RESP 18; TEMP 36.6; O2SAT 94
[2021-02-05] MEDS: LACTATED RINGERS 1,000 ML 70 ML IV CONT (16:01)
[2021-02-05 21:29] VITALS: BP 130/72; PULSE 66; RESP 18; TEMP 36.2; O2SAT 99
[2021-02-06] MEDS: IBUPROFEN IV 800 MG/200 ML 800 MG/200 ML BAG 400 MG IVPB (00:44)
[2021-02-06 05:14] VITALS: BP 111/65; PULSE 56; RESP 16; TEMP 36.2; O2SAT 97
[2021-02-06 05:51] LABS: Basophils Absolute Auto 0.1 K/mm3 (0.0-0.1); Basophils Percent Auto 0.3 % (0.2-1.2); Eosinophils Absolute Auto 0.6 K/mm3 (0-0.3); Eosinophils Percent Auto 3.7 % (0-4.4); Hematocrit 25.5 % (42.0-52.0); Hemoglobin 8.3 g/dL (14.0-18.0); Immature Granulocyte Absolute 0.06 K/mm3 (0.00-0.031); Immature Granulocyte Percent A 0.4 % (0-0.5); Lymphocytes Absolute Auto 1.53 K/mm3 (0.9-3.2); Lymphocytes Percent Auto 10.2 % (18.3-44.2); Mean Corpuscular HGB Conc 32.5 g/dl (32-36); Mean Corpuscular Hemoglobin 30.2 pg (26-34); Mean Corpuscular Volume 92.7 fl (80-100); Mean Platelet Volume 9.6 fl (7.4-10.4); Monocytes Absolute Auto 1.9 K/mm3 (0.1-0.6); Monocytes Percent Auto 12.3 % (2.6-8.5); Neutrophils Percent Auto 73.1 % (45.5-73.1); Platelet Count Result 584 k/mm3 (150-375); Red Blood Count 2.75 M/mm3 (4.6-6.20); Red Cell Distribution Width 13.5 % (11.5-14.5)
[2021-02-06 06:02] LABS: Anion Gap 4 mmol/L (8-16); Blood Urea Nitrogen 12 mg/dL (9-20); Calcium 7.7 mg/dL (8.4-10.2); Carbon Dioxide 28 mmol/L (22-30); Chloride 101 mmol/L (98-107); Estimated CRCL calculation 85 ml/min; Estimated Glomerular Filt Rate > 60; Glucose 105 mg/dL (75-110); Potassium 3.7 mmol/L (3.4-5.0); Sodium 133 mmol/L (137-145)
[2021-02-06] MEDS: LACTATED RINGERS 1,000 ML 70 ML IV CONT (06:19)
[2021-02-06] MEDS: IBUPROFEN IV 800 MG/200 ML 800 MG/200 ML BAG 300 MG IVPB (06:19)
[2021-02-06 08:15] VITALS: O2SAT 92
[2021-02-06] MEDS: FAMOTIDINE 20 MG/2 ML VIAL IV PUSH ×2 (08:21→20:58)
[2021-02-06] MEDS: ENOXAPARIN 40 MG/0.4 ML SYRINGE SUB-Q (08:21)
--- NOTE | 2021-02-06 10:38 | PM.PNGS ---
Progress Note: A&P Assessment and Plan (1) Colon stricture: Code(s): K56.699 - Other intestinal obstruction unspecified as to partial versus complete obstruction Status: Chronic Assessment and Plan: Advance to full liquids Increase activity Continue IV antibiotics (2) Fecal peritonitis: Code(s): K65.8 - Other peritonitis Status: Acute (3) Colon perforation: Code(s): K63.1 - Perforation of intestine (nontraumatic) Status: Acute Subjective Subjective Date/Time Seen: 02/06/21 10:38 Interval history: Tolerating clears. Legs are swollen from all the IV fluids, otherwise no complaints. Exam GI: Inspection: non-distended, incision (intact with javier) and other (MARILIN drain serous) GI Palp: Yes Tenderness to palpation present (GI) (incsional) Other: Ostomy pink, slightly retracted, functioning with stool in bag. Objective Data Vital Signs Vital Signs: Vital Signs - 24 hr 02/05/21 14:00 02/05/21 21:29 02/06/21 05:14 Temperature 36.6 C 36.2 C L 36.2 C L Pulse Rate 72 66 56 L Respiratory Rate 18 18 16 Blood Pressure 129/73 130/72 111/65 Pulse Oximetry 94 99 97 02/06/21 08:15 Temperature Pulse Rate Respiratory Rate Blood Pressure Pulse Oximetry 92 Intake/Output Intake/Output: Intake & Output 02/03/21 02/04/21 02/05/21 02/06/21 23:59 23:59 23:59 23:59 Intake Total 4120 5090 3960 2520 Output Total 2390 1360 1802 650 Balance 1730 3730 2158 1870 Meds/Results Medications: Active Medications Generic Name Dose Route Start Last Admin Trade Name Freq PRN Reason Stop Dose Admin Hydrocodone Bitart/Acetaminophen 1 tab 02/06/21 10:36 Hydrocodone/Acetaminophen (*Crx) 5-325 Mg Tablet PO Q4H PRN Pain Rated 4-6 Hydrocodone Bitart/Acetaminophen 1 tab 02/06/21 10:36 Hydrocodone/Acetaminophen (*Crx) 10-325 Mg Tablet PO Q4H PRN Pain Rated 7-10 Dextrose 12.5 gm 02/05/21 08:38 02/05/21 09:02 Dextrose 50% 25 Gm/50 Ml Syringe IV PUSH 12.5 gm PRN PRN Administration Hypoglycemia Protocol Enoxaparin Sodium 40 mg 02/03/21 09:00 02/06/21 08:21 Enoxaparin 40 Mg/0.4 Ml Syringe SUB-Q 40 mg DAILY MINDY Administration Famotidine 20 mg 02/02/21 21:00 02/06/21 08:21 Famotidine 20 Mg/2 Ml Vial IV PUSH 20 mg Q12HR MINDY Administration Glucagon 1 mg 02/05/21 08:38 Glucagon For Inj 1 Mg Vial IM PRN PRN Hypoglycemia Protocol Piperacillin/Tazobactam/Dextrose 3.375 gm in 50 mls @ 100 mls/hr 02/02/21 15:00 02/06/21 08:52 Zosyn 3.375 Gm/D5w 50ml Pm IVPB Infused Q6H MINDY Infusion Dextrose 1,000 mls @ 100 mls/hr 02/05/21 08:38 Dextrose 5% 1,000 Ml IVPB PRN PRN Hypoglycemia Protocol Ibuprofen 600 mg 02/06/21 10:36 Ibuprofen 600 Mg Tablet PO Q6H PRN Pain Rated 1-3 Naloxone HCl 0.1 mg 02/02/21 14:49 Naloxone Hcl 0.4 Mg/Ml Vial IV PUSH Q2M PRN Opiate Reversal Ondansetron HCl 4 mg 02/02/21 14:49 Ondansetron Inj 4 Mg/2 Ml Vial IV PUSH Q4H PRN Nausea And Vomiting Radiology Results: ITS Impressions Abdomen/Pelvis CT 02/02/21 08:41 IMPRESSION: 1. Mottled gas and fluid in the pelvis with moderate free intraperitoneal air, compatible with perforation. There is ascites. Exact site of perforation is not identified. 2: Fecal impaction of the colon. Dr. Junaid Ying discussed with Dr. Mirta Moser MD at 02/02/2021 08:44 CDT. Cystogram 02/05/21 09:14 IMPRESSION: Normal-appearing bladder with no evident bladder leak. Labs Labs: Laboratory Results - last 24 hr 02/06/21 02/06/21 05:22 05:22 WBC 15.0 H RBC 2.75 L Hgb 8.3 L Hct 25.5 L MCV 92.7 MCH 30.2 MCHC 32.5 RDW 13.5 Plt Count 584 H MPV 9.6 Immature Gran % (Auto) 0.4 Neut % (Auto) 73.1 Lymph % (Auto) 10.2 L [place] % (Auto) 12.3 H Eos % (Auto) 3.7 Baso % (Auto) 0.3 Lymph # (Auto) 1
--- NOTE | 2021-02-06 11:54 | PCNFU ---
Nutrition Follow-Up Complete: Nutrition Diagnosis: Altered GI function as related to colonic perforation as evidenced by NPO Nutrition Goal: Meet estimated nutritional needs Goal is in progress, patient is consuming 50-75% of meals. Nutrition recommendation: Continue with Full Liquid Diet. Last recorded weight is 63 kg. Recommend obtaining new weight. Bowel Motility: Last documented on 02/03. Labs Reviewed:Hgb(8.3), Hct(25.5), Na(133) Meds Noted: Zosyn 3.375 gm, Zofran, [place], Lovenox, Pepcid, Narcan, Glucagon Additional Notes: Abdominal wound from incision. Patient is progressing with his diet and is tolerating it well. Agree with diet orders. Will monitor every 5 days.
--- NOTE | 2021-02-06 13:18 | PCNSR ---
On 02/06/21, the student,Cristin Deshpande, provided care and completed [facility] documentation on this patient. I have reviewed the student's documentation and agree with the findings.
[2021-02-06 14:00] VITALS: BP 133/80; PULSE 62; RESP 18; TEMP 36.2; O2SAT 95
[2021-02-06 20:49] VITALS: BP 121/72; PULSE 66; RESP 18; TEMP 37.1; O2SAT 95
[2021-02-06] MEDS: IBUPROFEN 600 MG TABLET PO (22:57)
[2021-02-07 05:07] VITALS: BP 138/80; PULSE 52; RESP 18; TEMP 35.9; O2SAT 98
[2021-02-07 06:31] LABS: Hemoglobin 8.9 g/dL (14.0-18.0); Mean Corpuscular Hemoglobin 30.7 pg (26-34); Mean Corpuscular Volume 93.1 fl (80-100); Mean Platelet Volume 9.8 fl (7.4-10.4); Platelet Count Result 656 k/mm3 (150-375); Red Cell Distribution Width 13.5 % (11.5-14.5); White Blood Count 13.7 K/mm3 (4.5-10.0)
[2021-02-07 06:38] LABS: Anion Gap 5 mmol/L (8-16); Blood Urea Nitrogen 10 mg/dL (9-20); Calcium 8.1 mg/dL (8.4-10.2); Carbon Dioxide 28 mmol/L (22-30); Chloride 99 mmol/L (98-107); Estimated CRCL calculation 85 ml/min; Estimated Glomerular Filt Rate > 60; Glucose 96 mg/dL (75-110); Sodium 132 mmol/L (137-145)
[2021-02-07 09:37] VITALS: RESP 18; O2SAT 98
[2021-02-07] MEDS: ENOXAPARIN 40 MG/0.4 ML SYRINGE SUB-Q (09:38)
[2021-02-07] MEDS: FAMOTIDINE 20 MG/2 ML VIAL IV PUSH (09:38)
--- NOTE | 2021-02-07 11:15 | PM.DS ---
DS: Admitting Diagnosis Admitting Diagnosis Admitting Diagnosis: Perforated sigmoid colon DS: Discharge Diagnosis Discharge Diagnosis (1) Diverticulitis of large intestine with perforation: Qualifiers: Diverticulitis bleeding: without bleeding Qualified Code(s): K57.20 - Diverticulitis of large intestine with perforation and abscess without bleeding Code(s): K57.20 - Diverticulitis of large intestine with perforation and abscess without bleeding Status: Acute (2) Colon stricture: Code(s): K56.699 - Other intestinal obstruction unspecified as to partial versus complete obstruction Status: Chronic DS: Summary Hospital Course Reason for hospitalization: perforated sigmoid colon Hospital Course: this is a 50-year-old man who presented to the emergency department on 02/02/2021 with complaints of lower abdominal pain. He had been complaining of constipation and left lower quadrant pain off and on for the past year. He had previously had a colonoscopy at [place] which showed evidence of a sigmoid stricture. He had no further treatment for this and had not been referred for surgical resection prior to this. Upon presentation to the emergency department, he was noted have a high white blood count but was otherwise hemodynamically stable. CT of his abdomen and pelvis showed evidence feculent peritonitis and moderate amount of free air with fecal impaction throughout the colon. He was taken emergently for exploratory laparotomy. He underwent sigmoid colectomy with and descending colostomy and incidental appendectomy. A drain was placed at the time surgery and NG tube was also placed. He was then admitted to the surgical floor postoperatively. He was continued on broad-spectrum IV antibiotics. He was kept NPO and was placed on a morphine SEWER HEAD for pain control. His activity was gradually advanced as tolerated. A Oconnor catheter was left in place as well due to significant adhesions around his bladder at the time of surgery. A cystogram was obtained on postop day 3 prior to removing his Oconnor. There was no evidence of contrast extravasation from the bladder, therefore the Oconnor was removed. His NG tube was also removed on postop day 3 and he was started on clear liquids. His ostomy appeared patent and functioning. On postop day 4 he was advanced to a full liquid diet. The MARILIN drain was appearing serous. His white blood count was slowly trending down towards normal. On postop day 5 he was up ambulating and was tolerating ostomy care. He was advanced to a regular diet. Arrangements were made for ostomy supplies at home. His MARILIN drain was removed on postop day 5 and he was discharged. Status at Discharge Functional status at discharge: independent ambulation Overall status at discharge: patient is progressing back to baseline Time Spent with Patient Time attestation: Total time spent providing and/or coordinating discharge services: Time spent: Less than 30 minutes Exam GI: Inspection: non-distended, incision ( intact with javier, no surrounding erythema or drainage) and other ( MARILIN drain serous) GI Palp: Yes Soft to palpation and No Tenderness to palpation present (GI) Other: Ostomy slightly retracted at skin, but still remaining patent and healthy appearing. DS: Data Data Completed and Pending Completed studies during hospitalization: Pending at discharge 02/02/21 11:47 Surgical [PTH] Routine Surgical [PTH] Routine Labs on day of discharge: Labs from last 24 hours 02/07/21 02/07/21 05:18 05:18 WBC 13.7 H RBC 2.90 L Hgb 8.9 L Hct 27.0 L MCV 93.1 MCH 30.7 MCHC 33.0 RDW 13.5 Plt Count 656 H MPV 9.8 Sodium 132 L Potassium 4.0 Chloride 99 Carbon Dioxide 28 Anion Gap 5 L BUN 10 Creatinine 0.80 Estim Creat Clear Calc 85 Estimated GFR > 60 Glucose 96 Calcium 8.1 L Discharge Plan Discharge Attending physician on discharge: Temi
[2021-02-07 14:00] VITALS: BP 131/82; PULSE 66; RESP 16; TEMP 35.9; O2SAT 96
== END 2021-02-07 15:10 | disposition home or self-care (01) | DRG 231 ==
LOC: ANHED 09:49 → ANHSURGERY 10:22 → ANH2MED 14:53
PROVIDERS: Nurse Practitioner Family; Admitting Provider Surgery; Emergency Provider General Practice; PCP Family Medicine; Visit Provider Surgery
PROC: 0DTN0ZZ Resection of Sigmoid Colon, Open Approach (ICD-10-PCS; CPT 49000; principal; 2021-02-02 10:00)
DX: K57.20 Diverticulitis of large intestine with perforation and abscess without bleeding (principal); K56.690 Other partial intestinal obstruction; F17.210 Nicotine dependence, cigarettes, uncomplicated; Z98.1 Arthrodesis status
CPT/HCPCS: 36415; 51600; 74177; 74430; 80048; 80053; 82948; 83605; 83690; 85025; 85027; 86850; 86900; 86901; 88304; 88307; 96361; 96365; 96375; 99285; A9270; J0330; J1100; J1650; J1741; J2250; J2270; J2405; J2543; J2704; J3010; J7120; Q9967

== ENCOUNTER 2021-05-14 09:48 | Outpatient (CLI) | payer BC, SELFPAY ==
--- NOTE | 2021-05-14 10:43 | ECG_ITS ---
Measurements Intervals [place] Rate: 50 P: 51 MO: 151 QRS: 56 QRSD: 99 T: 43 QT: 384 QTc: 352 Interpretive Statements SINUS BRADYCARDIA BORDERLINE R WAVE PROGRESSION, ANTERIOR LEADS BASELINE ARTIFACT- I, II, AVR, AVL BORDERLINE ECG Electronically Signed On 05-14-2021 11:08:44 CDT by Elton Herbert D.O.
[2021-05-14 11:02] LABS: Hematocrit 40.1 % (42.0-52.0); Hemoglobin 13.4 g/dL (14.0-18.0); Mean Corpuscular HGB Conc 33.4 g/dl (32-36); Mean Corpuscular Hemoglobin 28.9 pg (26-34); Mean Corpuscular Volume 86.4 fl (80-100); Mean Platelet Volume 9.8 fl (7.4-10.4); Platelet Count Result 397 k/mm3 (150-375); Red Blood Count 4.64 M/mm3 (4.6-6.20); Red Cell Distribution Width 15.6 % (11.5-14.5); White Blood Count 10.7 K/mm3 (4.5-10.0)
[2021-05-14 11:17] LABS: Anion Gap 6 mmol/L (8-16); Blood Urea Nitrogen 13 mg/dL (9-20); Carbon Dioxide 28 mmol/L (22-30); Chloride 103 mmol/L (98-107); Estimated Glomerular Filt Rate > 60; Glucose 95 mg/dL (65-110); Potassium 4.4 mmol/L (3.4-5.0); Sodium 137 mmol/L (137-145)
== END 2021-05-14 09:49 | disposition home or self-care (01) ==
PROVIDERS: PCP Family Medicine; Visit Provider Surgery
DX: Z01.818 Encounter for other preprocedural examination (principal); Z72.0 Tobacco use; R94.31 Abnormal electrocardiogram [ECG] [EKG]
CPT/HCPCS: 36415; 80048; 85027; 93005

== ENCOUNTER → 2021-05-26 00:06 | Outpatient (CLI) | payer BC, SELFPAY ==
[2021-05-26 18:52] LABS: SARS-CoV-2 RNA PCR Negative
== END ==
PROVIDERS: PCP Family Medicine; Visit Provider Surgery
DX: Z01.812 Encounter for preprocedural laboratory examination (principal); Z20.822 Contact with and (suspected) exposure to COVID-19
CPT/HCPCS: C9803; U0003; U0005

== ENCOUNTER 2021-05-29 09:57 | Inpatient (IN) | payer BC, SELFPAY ==
[2021-05-14 09:58] VITALS: BMI 21.3
[2021-05-14 10:33] VITALS: BP 133/84; PULSE 60; RESP 16; TEMP 36.8; O2SAT 98
--- NOTE | 2021-05-27 16:36 | PM.IMHP ---
H&P: [facility] History of Present Illness Date/Time: 05/27/21 16:36 Chief Complaint: Wants colostomy closure. Narrative: patient is a 51-year-old man who presented February 02, 2021 with an acute surgical abdomen. He underwent laparotomy and was found to have a sigmoid colon stricture with proximal leak and fecal peritonitis. He underwent sigmoidectomy with Nader procedure. Pathology did show this to be benign disease, diverticulosis with stricture. The patient has done well following his surgery. He is now taken back to the operating room for closure of his end descending colostomy and episcopal of intestinal continuity. Review of Systems Review of Systems: All systems reviewed & are unremarkable except as noted in HPI and below Constitutional: Constitutional: Denies chills and Denies fever(s) Cardiovascular: Cardiovascular: Denies chest pain, Denies diaphoresis, Denies dyspnea and Denies paroxysmal nocturnal dyspnea Respiratory: Respiratory: Denies chest congestion, Denies cough and Denies dyspnea Integumentary/Breasts: Skin/Breast: Denies lesions and Denies rash PMFSH Past Medical History Medical History Diverticulitis Diverticulosis Surgical History Surgical History History of colon resection sigmoid colon resection with end descending colostomy, Nader procedure; Incidental appendectomy S/P cervical spinal fusion Social History Social History Smoking packs per day: 1 Smoking cigarettes per day: 20.0 Years smoked: 20 Smoking pack-years: 20.00 Smoking status: Current every day smoker Tobacco type: cigarettes Alcohol intake: never Substance use: current Substance use type: marijuana Other substance usage details: 02/01/21 Last use: 02/01/21 Gender identity (if verbalized by the patient): Male Spiritual care concerns: No Meds Home Medications and Allergies Home Medications Medication Instructions Recorded Confirmed Type acetaminophen 325 mg capsule 325 mg PO Q6H PRN 03/03/21 05/14/21 History diclofenac sodium 75 mg PO BID 05/14/21 05/14/21 History erythromycin 500 mg tablet 1 g PO .COMPLEX #6 tablet 05/26/21 Rx neomycin 500 mg tablet 1 g PO .COMPLEX #6 tablet 05/26/21 Rx Allergies Allergy/AdvReac Type Severity Reaction Status Date / Time No Known Allergies Allergy Verified 05/14/21 09:59 Exam Const: General: comfortable, no acute distress, alert and awake HENMT: Head: normocephalic and atraumatic Mouth: Yes Normal oral and palatal mucosa present Eyes: Conjunctivae: conjunctivae normal Pupils: Equal, round and reactive pupils present EOM: EOMs intact bilaterally Neck: Neck: normal visual inspection, no lymphadenopathy and nontender Resp: Effort & Inspection: normal respiratory effort Auscultation: clear to auscultation bilaterally Cardio: Rate: regular rate Rhythm: regular rhythm Heart sounds: no gallops, no murmurs and no rubs GI: Inspection: non-distended, scaphoid, scar ( Midline), no visible herniation and other ( left lower quadrant colostomy functioning well) GI Palp: Yes Soft to palpation, No Tenderness to palpation present (GI), No Hepatomegaly present, No Splenomegaly present, No Hernia present and No Palpable mass present Auscultation: normal bowel sounds Skin: Lesions: no lesions Rashes: no rashes Neuro: General: no focal motor deficits and CN's II-XI intact bilaterally Cranial nerves: Yes Equal, round and reactive pupils present, Yes Bilaterally intact EOM present, Yes facial symmetry and Yes Midline tongue present Speech: normal speech Motor exam (neuro): 5/5 motor strength present throughout and Motor abnormalities not present Extrem: General: no clubbing, cyanosis or edema and edema Psych: Affect: normal affect Thought process: Normal thought process present Ins
--- NOTE | 2021-05-28 13:16 | WPDANESEPPF ---
Anes - Initial Pre Proc Eval Procedure: Operation Date: 05/29/21 10:30 Proposed Procedures p Takedown of End Descending Colostomy and Colostomy Closure - Beck Villatoro MD Date/Time: 05/28/21 13:16 Surgeon: Beck Villatoro MD Pre Op Diagnosis: colostomy status Patient Data Age: 51 Gender: M Height: 1.73 m Weight: 63.6 kg Last Vital Signs Temp 36.8 C 05/14/21 10:33 Pulse 60 05/14/21 10:33 Resp 16 05/14/21 10:33 BP 133/84 05/14/21 10:33 Pulse Ox 98 05/14/21 10:33 Allergies Allergy/AdvReac Type Severity Reaction Status Date / Time No Known Allergies Allergy Verified 05/29/21 08:59 Home Medications Medication Instructions Recorded Confirmed Type acetaminophen 325 mg capsule 325 mg PO Q6H PRN 03/03/21 05/29/21 History diclofenac sodium 75 mg PO BID 05/14/21 05/29/21 History erythromycin 500 mg tablet 1 g PO .COMPLEX #6 tablet 05/26/21 Rx neomycin 500 mg tablet 1 g PO .COMPLEX #6 tablet 05/26/21 Rx Patient hx anesthesia problems: none Family hx anesthesia problems: none Results Review: All pre-operative results and documents have been reviewed as part of the pre-operative evaluation. FOR[facility]LY [facility] Past Medical History Medical History Diverticulitis Diverticulosis Surgical History Surgical History History of colon resection sigmoid colon resection with end descending colostomy, Nader procedure; Incidental appendectomy S/P cervical spinal fusion Social History Social History Smoking packs per day: 1 Smoking cigarettes per day: 20.0 Years smoked: 20 Smoking pack-years: 20.00 Smoking status: Current every day smoker Tobacco type: cigarettes Alcohol intake: never Substance use: current Substance use type: marijuana Other substance usage details: 02/01/21 Last use: 02/01/21 Living arrangements: with family Gender identity (if verbalized by the patient): Male Spiritual care concerns: No Anes - Eval Final PreProcedure Day of Procedure 05/28/21 13:16 Patient weight: normal Heart: regular rate and rhythm Lungs: clear to auscultation and normal air movement Airway: Mallampati scale class II Neurological: alert and oriented Last oral intake: >/= 8 hours ASA classification: III Emergent: no Anesthetic plan: proceed Anesthesia type and monitoring: general GIVS and standard monitoring Results Review: All pre-operative results and documents have been reviewed as part of the pre-operative evaluation. Informed Consent: The patient's anesthetic plan and its attendant risks and benefits were discussed with the patient/family/POA. Questions were solicited and answers provided to the satisfaction of the patient/family/POA.
[2021-05-29] VITALS (15 sets, daily range): BP systolic 125–162; BP diastolic 81–97; PULSE 58–85; RESP 12–19; TEMP 36.3–37.1; O2SAT 93–100
[2021-05-29] MEDS: KETOROLAC 15 MG/ML VIAL (*BKC) IV PUSH (09:17)
[2021-05-29] MEDS: ACETAMINOPHEN 500 MG TABLET 1000 MG PO (09:17)
[2021-05-29] MEDS: LACTATED RINGERS 1,000 ML 30 ML IV CONT ×2 (09:17→15:23)
[2021-05-29] MEDS: ALVIMOPAN 12 MG CAPSULE PO (10:14)
--- NOTE | 2021-05-29 10:42 | WPDHPUPDATE1 ---
History and Physical Update Update Date/Time: 05/29/21 10:42 History and Physical has been reviewed, including an updated exam of the patient. There are NO changes in the patient's condition. Risks, benefits, and alternatives have been discussed and questions answered. Patient agrees to proceed with procedure.
[2021-05-29] MEDS: ceFAZolin 2 GM/D5W 50 ML 2 GM/50 ML BAG IVPB (10:48)
[2021-05-29] MEDS: metroNIDAZOLE 500 MG/ISO 100ML 500 MG/100 ML BAG 100 MG IVPB (11:00)
[2021-05-29] MEDS: fentaNYL CITRATE INJ (*CRX) 100 MCG/2 ML VIAL 25 MCG IV PUSH ×8 (15:40→16:45)
--- NOTE | 2021-05-29 15:50 | W.PM.PROC2 ---
Procedure Note - Detailed Date of Procedure 05/29/21 Pre-op Diagnosis colostomy status Post-op Diagnosis same Procedure Performed Closure of end descending colostomy with 31 EEA stapled colorectal anastomosis, mobilization of splenic flexure. Surgeon Beck Villatoro MD Head Strength And Conditioning Coach Analia VALLADARESA. Anesthesia general Indications Patient is a 51-year-old man who presented 6 months ago with an acute abdomen. At surgery he was found to have a sigmoid colon obstruction with perforation of the descending colon and fecal peritonitis. He underwent sigmoidectomy with Nader procedure. He recovered well following his surgery. 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 Findings Some flimsy residual adhesions in the peritoneal cavity. In the pelvis, the rectal stump was able to be found due to the Prolene sutures that had been placed. There were adhesions to the rectal stump but no more than 1 would expect. Colostomy was in good condition and taking down the colostomy showed no significant findings. 31 mm stapled EEA colorectal anastomosis was able to be performed. Leak test and proctosigmoidoscopy were carried out x2 and no evidence of anastomotic leak was noted. Description of Procedure The patient was taken to surgery and induced into general anesthesia. He was placed in Adair stirrups in lithotomy. Oconnor catheter was placed. Rectal irrigation and rectal tube were placed. The abdomen was prepped and draped. We turned our attention 1st to the end descending colostomy. The mucocutaneous junction was incised circumferentially. We carefully dissected through the skin and mucosal junction. We then carefully dissected down into the subcutaneous around the colostomy. This was slow somewhat tedious dissection. Eventually we dissected down to the fascia circumferentially. We were able to then continue the dissection into the peritoneal cavity. Additional adhesions were taken down and eventually we freed the descending colon colostomy up completely. We were able to move it in and out of the abdominal wall opening without difficulty. I dissected an area just proximal to the end of the colostomy and closed that with a TLC 55 stapler. The into the colostomy was sent to pathology. The descending colon was then dropped into the abdominal cavity. The surgical team then changed outer gloves. We proceeded with the laparotomy. The old midline incision was excised at the skin level. The skin was discarded. We then dissected down through the midline fascia and entered the peritoneal cavity. There were some anterior abdominal wall adhesions of omentum but really no small bowel abdominal wall adhesions. We opened the abdomen the length of the previous wound. The abdomen was explored. Findings were as noted above. There was clearly not of the length to the descending colon to reach down into the pelvis. I started by eviscerating the small bowel and then mobilizing the descending colon and taking down the splenic flexure. We divided the lateral peritoneal attachments to the descending colon. I then freed the transverse and hepatic flexure from the omentum. There were quite a few adhesions associated with this. Eventually we skeletonized such that the colonic mesentery was able to be well visualized. Then using the LigaSure, I divided the mesentery to the proximal descending colon, splenic flexure and distal half of the transverse colon. I stayed well away from the bowel doing this so that we had good blood supply to the colon via the marginal artery. The inferior mesenteric vein was divided with the LigaSure as well. This gave us excellent length under no tension to reach down into the pelvis for anastomosis. We then placed the patient in Trendelenburg and moved the small intestine up into the abdomen and quarantined it with laparotomy sponges. This allowed us to proceed with dissection in the pelvis to find and mobilize the rectal
--- NOTE | 2021-05-29 17:09 | ADMGEN ---
This patient, Eric Karimi, was admitted to Medical Room 245-. Patient/family oriented to hospital policies and general routines including ID bracelet, bed and alarms, visiting hours, pain management, procedures, bathroom and other care routines, personal items, smoking policy, room service/diet, and visiting hours. Information on how to activate the Rapid Response Team has been discussed. Patient/Family are encouraged to report perceived risks to care and to ask questions if they do not understand what they are told or what they should do.
[2021-05-29] MEDS: MORPHINE SULFATE (*CRX) 4 MG/ML INJ IV PUSH ×2 (18:00→20:19)
[2021-05-29] MEDS: LACTATED RINGERS 1,000 ML 100 ML IV CONT (18:01)
[2021-05-29] MEDS: MORPHINE SULFATE PCA (*CRX) 30 MG/30 ML SYR IV CONT (21:18)
[2021-05-29] MEDS: FAMOTIDINE 20 MG/2 ML VIAL IV PUSH (21:21)
--- NOTE | 2021-05-30 02:10 | PC.NURSE ---
While trying to get patient up for a walk patient stated he is not ready for a walk . Will try to get patient up again shortly.
[2021-05-30] MEDS: LACTATED RINGERS 1,000 ML 100 ML IV CONT (02:17)
--- NOTE | 2021-05-30 02:20 | PC.NURSE ---
While trying to get patient up for a walk he stated he is not walking right now and that he's not ready for a walk . Will try to get patient up for a walk again later.
[2021-05-30 04:01] VITALS: BP 148/86; PULSE 62; RESP 20; TEMP 36.6; O2SAT 94
[2021-05-30 05:31] LABS: Hematocrit 39.6 % (42.0-52.0); Hemoglobin 13.4 g/dL (14.0-18.0); Mean Corpuscular HGB Conc 33.8 g/dl (32-36); Mean Corpuscular Hemoglobin 28.6 pg (26-34); Mean Corpuscular Volume 84.6 fl (80-100); Mean Platelet Volume 10.3 fl (7.4-10.4); Platelet Count Result 416 k/mm3 (150-375); Red Blood Count 4.68 M/mm3 (4.6-6.20); Red Cell Distribution Width 16.2 % (11.5-14.5); White Blood Count 21.3 K/mm3 (4.5-10.0)
[2021-05-30 06:02] LABS: Anion Gap 7 mmol/L (8-16); Blood Urea Nitrogen 15 mg/dL (9-20); Calcium 8.5 mg/dL (8.4-10.2); Carbon Dioxide 26 mmol/L (22-30); Chloride 101 mmol/L (98-107); Estimated CRCL calculation 73 ml/min; Estimated Glomerular Filt Rate > 60; Glucose 112 mg/dL (65-110); Potassium 4.6 mmol/L (3.4-5.0); Sodium 134 mmol/L (137-145)
[2021-05-30 08:01] VITALS: BP 141/88; PULSE 73; RESP 18; TEMP 36.8; O2SAT 94
[2021-05-30] MEDS: ENOXAPARIN 40 MG/0.4 ML SYRINGE SUB-Q (08:11)
[2021-05-30] MEDS: DICLOFENAC SOD 75 MG TABLET.EC PO ×2 (08:11→16:20)
[2021-05-30] MEDS: FAMOTIDINE 20 MG/2 ML VIAL IV PUSH (08:11)
[2021-05-30] MEDS: NICOTINE (*PBKC) 14 MG PATCH 1 PATCH TRANSDERM (08:12)
--- NOTE | 2021-05-30 08:42 | PM.PNGS ---
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 Status post difficult closure of end descending colostomy with stapled number 31 EEA colorectal anastomosis. Tolerating clear liquids but little appetite. Will advance to full liquids and discontinue Oconnor catheter. Decrease the dose on BRIDGE PAINTER from 2 mg to 1 mg but continue basal rate of 1 milligram/hour morphine sulfate. Start dressing changes. Increase ambulation. (2) Tobacco abuse: Code(s): Z72.0 - Tobacco use Status: Chronic Assessment and Plan: Receiving nicotine patch. Use spirometer. Ambulate to hopefully prevent pulmonary complications postoperatively. (3) Colon stricture: Code(s): K56.699 - Other intestinal obstruction unspecified as to partial versus complete obstruction Status: Resolved Assessment and Plan: resolved with sigmoidectomy and Nader procedure 02/03/2021 Subjective Subjective Date/Time Seen: 05/30/21 08:42 Post Op day: 1 Patient reports: still having pain ( BRIDGE PAINTER pump started last night. Still says he had a rough night. No particular complaints.), tolerating liquids well, no flatus, no bowel movement and afebrile Review of Systems Review of Systems: All systems reviewed & are unremarkable except as noted in HPI and below Constitutional: Constitutional: Denies chills, Denies fever(s), Denies headache(s) and Reports poor appetite Cardiovascular: Cardiovascular: Denies chest pain and Denies dyspnea Respiratory: Respiratory: Denies cough and Denies dyspnea Gastrointestinal: Gastrointestinal: Reports as per HPI, Denies heartburn, Denies nausea and Denies vomiting Neurologic: Denies confusion and Denies headache(s) Exam Const: General: comfortable and no acute distress; No confusion Orientation/consciousness: patient oriented x3 and No confusion GI: Inspection: non-distended, incision ( Small area of bloody drainage on dressing. Otherwise dry and intact) and scaphoid GI Palp: Yes Soft to palpation and Yes Tenderness to palpation present (GI) Auscultation: Hypoactive bowel sounds present Neuro: General: patient oriented x3, no focal motor deficits and No confusion Extrem: General: no calf tenderness and no edema Psych: Affect: normal affect Insight: Good insight present (Psych) Judgement: Good judgement present (Psych) Objective Data Vital Signs Vital Signs: Vital Signs - 24 hr 05/29/21 08:54 05/29/21 15:23 05/29/21 15:30 Temperature 36.8 C 36.6 C Pulse Rate 58 L 85 69 Respiratory Rate 18 16 17 Blood Pressure 125/81 158/92 H 147/96 H Pulse Oximetry 100 100 100 05/29/21 15:45 05/29/21 16:00 05/29/21 16:15 Temperature Pulse Rate 67 67 65 Respiratory Rate 12 17 19 Blood Pressure 142/93 H 149/92 H 151/95 H Pulse Oximetry 97 98 99 05/29/21 16:30 05/29/21 16:45 05/29/21 17:00 Temperature 37.1 C Pulse Rate 63 66 71 Respiratory Rate 14 16 14 Blood Pressure 155/93 H 148/84 H 143/89 H Pulse Oximetry 98 99 100 05/29/21 17:15 05/29/21 17:45 05/29/21 18:45 Temperature 36.3 C L 37.1 C 36.6 C Pulse Rate 66 77 79 Respiratory Rate 16 16 18 Blood Pressure 144/82 H 147/88 H 162/97 H Pulse Oximetry 93 94 96 05/29/21 19:01 05/29/21 19:50 05/29/21 23:55 Temperature 36.9 C 36.9 C 36.9 C Pulse Rate 80 80 70 Respiratory Rate 18 18 18 Blood Pressure 150/90 H 150/90 H 144/88 H Pulse Oximetry 99 99 93 05/30/21 04:01 Temperature 36.6 C Pulse Rate 62 Respiratory Rate 20 Blood Pressure 148/86 H Pulse Oximetry 94 Intake/Output Intake/Output: Intake & Output 05/27/21 05/28/21 05/29/21 05/30/21 23:59 23:59 23:59 23:59 Intake Total 550 1199.9 Output Total 600 Balance 550 599.9 Meds/Results Medications: Active Medications Generic Name Dose Route Start Last Admin Trade Name Freq PRN Reason Stop Dose Admin Acetaminophen 500 mg
[2021-05-30] MEDS: KCL 20 MEQ/D5/0.9% SOD CHL 1,000 ML 80 ML IV CONT ×2 (09:28→21:40)
--- NOTE | 2021-05-30 10:25 | WPDANESPN ---
Anes - Prog Note Post-Op Date/Time: 05/30/21 10:25 Cardiovascular status: normal Respiratory status: normal Airway patency: baseline Mental status: baseline Post-Op hydration status: normal Vital Signs: Last Vital Signs Temp 36.8 C 05/30/21 08:01 Pulse 73 05/30/21 08:01 Resp 18 05/30/21 08:01 BP 141/88 H 05/30/21 08:01 Pulse Ox 94 05/30/21 08:01 Pain Score (VAS): 0 I/O: Intake & Output 05/29/21 05/30/21 05/30/21 23:59 07:59 15:59 Intake Total 400 1199.9 Output Total 600 Balance 400 599.9 Laboratory Tests 05/30/21 05:03 05/30/21 05:03 05/29/21 05/30/21 05/30/21 09:15 05:03 05:03 WBC 21.3 H RBC 4.68 Hgb 13.4 L Hct 39.6 L MCV 84.6 MCH 28.6 MCHC 33.8 RDW 16.2 H Plt Count 416 H MPV 10.3 Sodium 134 L Potassium 4.6 Chloride 101 Carbon Dioxide 26 Anion Gap 7 L BUN 15 Creatinine 0.90 Estim Creat Clear Calc 73 Estimated GFR > 60 Glucose 112 H Calcium 8.5 Blood Type O Positive Antibody Screen Negative Post-procedural complaints: none Patient Feedback: Patient satisfied with anesthetic care.
[2021-05-30 12:01] VITALS: BP 137/75; PULSE 61; RESP 16; TEMP 36.7; O2SAT 92
[2021-05-30] MEDS: MORPHINE SULFATE PCA (*CRX) 30 MG/30 ML SYR IV CONT ×2 (13:38→21:35)
[2021-05-30 16:01] VITALS: BP 146/85; PULSE 80; RESP 18; TEMP 36.7; O2SAT 93
[2021-05-30 20:01] VITALS: BP 125/72; PULSE 73; RESP 18; TEMP 37.3; O2SAT 93
[2021-05-30] MEDS: ALVIMOPAN 12 MG CAPSULE PO (20:05)
[2021-05-30] MEDS: FAMOTIDINE 20 MG TABLET PO (20:05)
[2021-05-31] MEDS: MORPHINE SULFATE PCA (*CRX) 30 MG/30 ML SYR IV CONT ×2 (04:53→15:10)
[2021-05-31 05:22] VITALS: BP 130/78; PULSE 70; RESP 20; TEMP 36.6; O2SAT 93
[2021-05-31 05:42] LABS: Hematocrit 34.1 % (42.0-52.0); Hemoglobin 11.2 g/dL (14.0-18.0); Mean Corpuscular HGB Conc 32.8 g/dl (32-36); Mean Corpuscular Hemoglobin 29.2 pg (26-34); Mean Corpuscular Volume 88.8 fl (80-100); Mean Platelet Volume 10.9 fl (7.4-10.4); Platelet Count Result 308 k/mm3 (150-375); Red Blood Count 3.84 M/mm3 (4.6-6.20); Red Cell Distribution Width 16.7 % (11.5-14.5); White Blood Count 13.2 K/mm3 (4.5-10.0)
[2021-05-31 05:55] LABS: Anion Gap 2 mmol/L (8-16); Blood Urea Nitrogen 14 mg/dL (9-20); Calcium 8.4 mg/dL (8.4-10.2); Carbon Dioxide 28 mmol/L (22-30); Chloride 103 mmol/L (98-107); Estimated CRCL calculation 92 ml/min; Estimated Glomerular Filt Rate > 60; Glucose 94 mg/dL (65-110); Sodium 133 mmol/L (137-145)
[2021-05-31] MEDS: FAMOTIDINE 20 MG TABLET PO ×2 (08:27→21:20)
[2021-05-31] MEDS: NICOTINE (*PBKC) 14 MG PATCH 1 PATCH TRANSDERM (08:27)
[2021-05-31] MEDS: ALVIMOPAN 12 MG CAPSULE PO ×2 (08:27→21:21)
[2021-05-31] MEDS: ENOXAPARIN 40 MG/0.4 ML SYRINGE SUB-Q (08:27)
[2021-05-31] MEDS: DICLOFENAC SOD 75 MG TABLET.EC PO ×2 (08:27→16:32)
[2021-05-31 09:31] VITALS: BP 135/78; PULSE 65; RESP 12; TEMP 36.9; O2SAT 95
[2021-05-31] MEDS: KCL 20 MEQ/D5/0.9% SOD CHL 1,000 ML 80 ML IV CONT ×2 (10:56→22:49)
[2021-05-31 14:20] VITALS: BP 143/87; PULSE 64; RESP 16; TEMP 37.1; O2SAT 96
[2021-05-31 15:10] VITALS: RESP 16; O2SAT 97
--- NOTE | 2021-05-31 17:59 | PM.PNGS ---
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 Status post difficult closure of end descending colostomy with stapled number 31 EEA colorectal anastomosis. Tolerating full liquids well an had several BM's. voiding okay after Oconnor out. discussed with the patient putting the SATURATION DIVER morphine on hold. Will then have the nurse try him with some hydrocodone at the appropriate level. I put in a nurse communication order which allows them to switch back to the basal rate of 1 mg an hour and the SATURATION DIVER mode as previously set if oral pain medicine does not work for him. He seems pretty comfortable today and has been walking. Increase ambulation. (2) Tobacco abuse: Code(s): Z72.0 - Tobacco use Status: Chronic Assessment and Plan: Receiving nicotine patch. Use spirometer. Ambulate to hopefully prevent pulmonary complications postoperatively. (3) Colon stricture: Code(s): K56.699 - Other intestinal obstruction unspecified as to partial versus complete obstruction Status: Resolved Assessment and Plan: resolved with sigmoidectomy and Nader procedure 02/03/2021 Subjective Subjective Date/Time Seen: 05/31/21 17:59 Post Op day: 2 (Status post colostomy takedown) Patient reports: no new complaints, feels better, tolerating liquids well and bowel movement Interval history: patient states he is not having to use the button on the SATURATION DIVER much. Has been walking in the halls. Review of Systems Review of Systems: All systems reviewed & are unremarkable except as noted in HPI and below ENT: Denies headache(s) Cardiovascular: Cardiovascular: Denies chest pain, Denies diaphoresis, Denies dyspnea and Denies paroxysmal nocturnal dyspnea Respiratory: Respiratory: Denies chest congestion, Denies cough and Denies dyspnea Gastrointestinal: Gastrointestinal: Reports as per HPI, Denies heartburn, Denies nausea and Denies vomiting Psychiatric: Psychiatric: Denies confusion Exam Const: General: comfortable, no acute distress, alert and awake; No confusion Orientation/consciousness: patient oriented x3 and No confusion Eyes: Conjunctivae: conjunctivae normal Pupils: Equal, round and reactive pupils present EOM: EOMs intact bilaterally Neck: Neck: normal visual inspection, no lymphadenopathy and nontender Resp: Effort & Inspection: normal respiratory effort Auscultation: clear to auscultation bilaterally GI: Inspection: normal to inspection and incision ( Not examined today as nurse to change the dressing earlier) GI Palp: Yes abdominal tenderness ( appropriate incisional) Auscultation: normal bowel sounds Skin: Lesions: no lesions Rashes: no rashes Extrem: General: no clubbing, cyanosis or edema, no calf tenderness and no edema Psych: Affect: normal affect Thought process: Normal thought process present Insight: Good insight present (Psych) Judgement: Good judgement present (Psych) Objective Data Vital Signs Vital Signs: Vital Signs - 24 hr 05/30/21 20:01 05/31/21 05:22 05/31/21 09:31 Temperature 37.3 C 36.6 C 36.9 C Pulse Rate 73 70 65 Respiratory Rate 18 20 12 Blood Pressure 125/72 130/78 135/78 Pulse Oximetry 93 93 95 05/31/21 14:20 05/31/21 15:10 Temperature 37.1 C Pulse Rate 64 Respiratory Rate 16 16 Blood Pressure 143/87 H Pulse Oximetry 96 97 Intake/Output Intake/Output: Intake & Output 05/28/21 05/29/21 05/30/21 05/31/21 23:59 23:59 23:59 23:59 Intake Total 550 2971.4 1588.3 Output Total 775 Balance 550 2196.4 1588.3 Meds/Results Medications: Active Medications Generic Name Dose Route Start Last Admin Trade Name Freq PRN Reason Stop Dose Admin Acetaminophen 500 mg 05/29/21 16:49 Acetaminophen 500 Mg Tablet PO Q6H PRN Mild Pain (1-3) or Fever Hydrocodone Bitart/Acetaminophen 1 tab 05/29/21 16:
--- NOTE | 2021-05-31 18:23 | PC.NURSE ---
morphine infused 11.8 mL. Order on hold, unable to chart in OCT. Remainder 19.2 mL wasted.
[2021-05-31] MEDS: HYDROcodone/acetaminophen (*CRX) 5-325 MG TABLET 1 TAB PO (18:29)
[2021-05-31 21:26] VITALS: BP 127/76; PULSE 81; RESP 16; TEMP 36.8; O2SAT 95
[2021-05-31] MEDS: HYDROcodone/acetaminophen (*CRX) 10-325 MG TABLET 1 TAB PO (22:48)
[2021-06-01 02:22] VITALS: BP 129/74; PULSE 62; RESP 16; TEMP 36.9; O2SAT 92
[2021-06-01 05:23] LABS: Hematocrit 28.6 % (42.0-52.0); Hemoglobin 9.7 g/dL (14.0-18.0); Mean Corpuscular HGB Conc 33.9 g/dl (32-36); Mean Corpuscular Volume 85.4 fl (80-100); Mean Platelet Volume 10.7 fl (7.4-10.4); Platelet Count Result 292 k/mm3 (150-375); Red Blood Count 3.35 M/mm3 (4.6-6.20); Red Cell Distribution Width 16.2 % (11.5-14.5); White Blood Count 9.9 K/mm3 (4.5-10.0)
[2021-06-01 05:29] VITALS: BP 146/80; PULSE 62; RESP 16; TEMP 36.6; O2SAT 96
[2021-06-01 05:48] LABS: Anion Gap 6 mmol/L (8-16); Blood Urea Nitrogen 6 mg/dL (9-20); Calcium 8.4 mg/dL (8.4-10.2); Carbon Dioxide 27 mmol/L (22-30); Chloride 102 mmol/L (98-107); Estimated CRCL calculation 92 ml/min; Estimated Glomerular Filt Rate > 60; Glucose 96 mg/dL (65-110); Potassium 4.1 mmol/L (3.4-5.0); Sodium 135 mmol/L (137-145)
[2021-06-01] MEDS: FAMOTIDINE 20 MG TABLET PO ×2 (09:37→20:47)
[2021-06-01] MEDS: HYDROcodone/acetaminophen (*CRX) 10-325 MG TABLET 1 TAB PO (09:37)
[2021-06-01] MEDS: DICLOFENAC SOD 75 MG TABLET.EC PO ×2 (09:37→17:22)
[2021-06-01] MEDS: ENOXAPARIN 40 MG/0.4 ML SYRINGE SUB-Q (09:37)
[2021-06-01] MEDS: ALVIMOPAN 12 MG CAPSULE PO ×2 (09:38→20:47)
[2021-06-01] MEDS: NICOTINE (*PBKC) 14 MG PATCH 1 PATCH TRANSDERM (09:39)
[2021-06-01 10:10] VITALS: BP 140/77; PULSE 58; RESP 20; TEMP 37.3; O2SAT 95
[2021-06-01 12:00] VITALS: BP 149/88; PULSE 59; RESP 20; TEMP 36.6; O2SAT 98
--- NOTE | 2021-06-01 12:43 | PM.PNGS ---
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 Status post difficult closure of end descending colostomy with stapled number 31 EEA colorectal anastomosis. Tolerating full liquids well andhad several BM's. (Slated to advance to a low residue diet). voiding okay after Oconnor out. discussed with the patient stopining the SAND CUTTER morphine completely as he did well with it on hold last night just taking pain pills. He states that he took 1 [place] at 11:00 p.m. last night and then did not take another one until sometime this morning. He may even try Tylenol later today. He will take some hydrocodone at the appropriate level if needed. He seems pretty comfortable today and has been walking. Increase ambulation. (2) Tobacco abuse: Code(s): Z72.0 - Tobacco use Status: Chronic Assessment and Plan: Receiving nicotine patch. Use spirometer. Ambulate to hopefully prevent pulmonary complications postoperatively. (3) Colon stricture: Code(s): K56.699 - Other intestinal obstruction unspecified as to partial versus complete obstruction Status: Resolved Assessment and Plan: resolved with sigmoidectomy and Nader procedure 02/03/2021 (4) Anemia: Code(s): D64.9 - Anemia, unspecified Status: Acute Assessment and Plan: His hemoglobin went down some overnight but may be related to hydration and some minor postoperative blood loss. Will recheck in a.m.. Patient has no symptoms of dizziness or lightheadedness. Subjective Subjective Date/Time Seen: 06/01/21 12:43 Post Op day: 3 (Doing well status post colostomy takedown) Patient reports: no new complaints and feels better Interval history: patient states he did have a little bit of darkish blood in the stool several times yesterday but that stopped last evening. Stool today was still loose but no blood. Patient feels well not much abdominal pain. Nurse reports changing the dressing and incision looks good along with the incision at the ostomy site. Review of Systems Review of Systems: All systems reviewed & are unremarkable except as noted in HPI and below Constitutional: Constitutional: Denies chills, Denies fever(s), Denies headache(s) and Reports poor appetite ENT: Denies headache(s) Cardiovascular: Cardiovascular: Denies chest pain, Denies diaphoresis, Denies dyspnea and Denies paroxysmal nocturnal dyspnea Respiratory: Respiratory: Denies chest congestion, Denies cough and Denies dyspnea Gastrointestinal: Gastrointestinal: Reports as per HPI, Denies heartburn, Denies nausea and Denies vomiting Comments: States pain is much less than after his original surgery in January Genitourinary: Comments: no trouble voiding after Oconnor has been out. Integumentary/Breasts: Skin/Breast: Denies lesions and Denies rash Neurologic: Denies confusion and Denies headache(s) Psychiatric: Psychiatric: Denies confusion Exam Const: General: comfortable, no acute distress, alert and awake; No confusion Orientation/consciousness: patient oriented x3 and No confusion HENMT: Head: normocephalic and atraumatic Mouth: Yes Normal oral and palatal mucosa present Eyes: Conjunctivae: conjunctivae normal Pupils: Equal, round and reactive pupils present EOM: EOMs intact bilaterally Neck: Neck: normal visual inspection, no lymphadenopathy and nontender Resp: Effort & Inspection: normal respiratory effort Auscultation: clear to auscultation bilaterally Cardio: Rate: regular rate Rhythm: regular rhythm Heart sounds: no gallops, no murmurs and no rubs GI: Inspection: normal to inspection and incision ( Clean and dry. Nurse change dressing earlier today and I just lifted it ) GI Palp: Yes abdominal tenderness ( appropriate incisional) Auscultation: normal bowel sounds Other: midline incision and old ostom
[2021-06-01] MEDS: HYDROcodone/acetaminophen (*CRX) 5-325 MG TABLET 1 TAB PO ×2 (13:03→17:26)
[2021-06-01 15:50] VITALS: BP 149/88; PULSE 59; RESP 20; TEMP 36.6; O2SAT 98
[2021-06-01] MEDS: ACETAMINOPHEN 500 MG TABLET PO (20:54)
[2021-06-01 22:00] VITALS: BP 157/88; PULSE 68; RESP 20; TEMP 37.2; O2SAT 98
[2021-06-02 02:00] VITALS: BP 141/79; PULSE 68; RESP 20; TEMP 36.9; O2SAT 98
[2021-06-02 05:32] LABS: Hematocrit 30.8 % (42.0-52.0); Hemoglobin 10.8 g/dL (14.0-18.0); Mean Corpuscular HGB Conc 35.1 g/dl (32-36); Mean Corpuscular Hemoglobin 29.3 pg (26-34); Mean Corpuscular Volume 83.7 fl (80-100); Mean Platelet Volume 10.2 fl (7.4-10.4); Platelet Count Result 338 k/mm3 (150-375); Red Blood Count 3.68 M/mm3 (4.6-6.20); Red Cell Distribution Width 16.3 % (11.5-14.5); White Blood Count 8.4 K/mm3 (4.5-10.0)
[2021-06-02 05:55] LABS: Anion Gap 6 mmol/L (8-16); Blood Urea Nitrogen 7 mg/dL (9-20); Calcium 8.9 mg/dL (8.4-10.2); Carbon Dioxide 27 mmol/L (22-30); Chloride 100 mmol/L (98-107); Estimated CRCL calculation 81 ml/min; Estimated Glomerular Filt Rate > 60; Glucose 91 mg/dL (65-110); Potassium 4.5 mmol/L (3.4-5.0); Sodium 133 mmol/L (137-145)
[2021-06-02 06:00] VITALS: BP 127/80; PULSE 67; RESP 20; TEMP 36.9; O2SAT 98
[2021-06-02] MEDS: ENOXAPARIN 40 MG/0.4 ML SYRINGE SUB-Q (09:57)
[2021-06-02] MEDS: DICLOFENAC SOD 75 MG TABLET.EC PO (09:57)
[2021-06-02] MEDS: NICOTINE (*PBKC) 14 MG PATCH 1 PATCH TRANSDERM (09:57)
[2021-06-02] MEDS: FAMOTIDINE 20 MG TABLET PO (09:58)
[2021-06-02 09:59] VITALS: RESP 20; O2SAT 98
[2021-06-02] MEDS: ALVIMOPAN 12 MG CAPSULE PO (09:59)
[2021-06-02] MEDS: HYDROcodone/acetaminophen (*CRX) 5-325 MG TABLET 1 TAB PO (10:06)
[2021-06-02 10:35] VITALS: BP 118/79; PULSE 63; RESP 16; TEMP 36.4; O2SAT 97
--- NOTE | 2021-06-02 10:56 | PM.DS ---
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 Villatoro (2) Tobacco abuse: Code(s): Z72.0 - Tobacco use Status: Chronic Assessment and Plan: Nicotine patch while admitted. Encouraged cessation. (3) Anemia: Code(s): D64.9 - Anemia, unspecified Status: Acute DS: Summary Hospital Course Reason for hospitalization: This is a 51-year-old male who presented in January of 2021 with an acute surgical abdomen. He underwent laparotomy and was found to have a sigmoid colon stricture with proximal oblique and fecal peritonitis. He had a sigmoidectomy with Nader procedure. Pathology showed benign disease with diverticulosis and stricture. He did well following surgery and decided he wanted colostomy closure. He presented on 05/29/2021 for this surgery with Dr. Villatoro. Hospital Course: The patient underwent closure of end descending colostomy and mobilization of splenic flexure by Dr. Villatoro on 05/29/2021. No significant findings during surgery and no evidence of an anastomotic leak with leak test and proctosigmoidoscopy x2. The patient was sent to the medical floor after recovery. His diet was slowly advanced and he has tolerated this well. His hemoglobin did drop slightly following surgery as low as 9.7 with a preoperative hemoglobin of 13.4. He remained hemodynamically stable with no signs of bleeding and was monitored with serial labs. His hemoglobin is up to 10.8 today and he appears stable. This is felt likely to be due to hemodilution and hydration with minimal perioperative blood loss. 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 Bowel function returned on postop day 2. He is tolerating activity and tolerating a low-fiber diet today. After discussing with Dr. Villatoro, the patient is stable for discharge today. Time spent discussing smoking cessation with patient: 3 to 10 minutes Status at Discharge Functional status at discharge: independent ambulation Overall status at discharge: patient is progressing back to baseline Time Spent with Patient Time attestation: Total time spent providing and/or coordinating discharge services: Time spent: Less than 30 minutes Exam Const: General: comfortable, no acute distress, alert and awake Orientation/consciousness: patient oriented x3 Resp: Effort & Inspection: normal respiratory effort Auscultation: clear to auscultation bilaterally Cardio: Rate: regular rate Rhythm: regular rhythm GI: Inspection: non-distended, incision (Abdominal incision with minimal dry sanguineous drainage, javier intact) and other (no erythema or warmth around incision) GI Palp: Yes Soft to palpation, Yes Tenderness to palpation present (GI) (incisional) and No Guarding due to palpation present (GI) Auscultation: normal bowel sounds Skin: General skin exam: normal color Neuro: General: moves all extremities and no focal motor deficits Extrem: General: no clubbing, cyanosis or edema and no calf tenderness Psych: Mental Status: mental status grossly normal Insight: Good insight present (Psych) Judgement: Good judgement present (Psych) DS: Data Data Completed and Pending Pending studies at discharge: Pending at discharge 05/29/21 12:20 Surgical [PTH] Routine Surgical [PTH] Routine Surgical [PTH] Routine Labs on day of discharge: Labs from last 24 hours 06/02/21 06/02/21 05:09 05:09 WBC 8.4 RBC 3.68 L Hgb 10.8 L H
--- OUTSIDE RECORDS SUMMARY | 2021-06-06 07:47 | XMS_ITS ---
:1970 Author Care Team Providers Name Role Phone Oj Primary Care Provider Unavailable Allergies Code Code System Name Reaction Severity Status Onset NKDA ? Medications Name Status Start Date Stop Date ? ? amoxicillin 875 mg tabs Completed ? 05/01/20 15 amoxicillin 875 mg-potassium Completed ? clavulanate 125 mg tablet cephalexin 500 mg caps Completed ? 5 cyclobenzaprine 10 mg tablet Completed ? 08/2016 diclofenac sodium 75 mg tablet,delayed Active ? Not available release diclofenac sodium dr 75 mg tbec Completed ? 09/30/2016 fluticasone propionate 50 mcg/actuation Completed ? 01/07/2017 nasal spray,suspension gabapentin 300 mg capsule Completed ? 2017 Take 1 capsule every day by oral route at bedtime. hydrocodone/acetaminophen 5-325 mgtabs Completed ? 05/01/2015 ketoconazole 2 % topical cream Completed ? 0 05/01/2015 apply to affected area bid x 4-6 weeks meloxicam 7.5 mg tabs Completed ? 05/01/2015 penicillin V potassium 500 mg tablet Completed ? 06/11/2020 permethrin 5 % crea Completed ? 09/29/2016 permethrin 5 % topical cream Completed ? APPLY (THOROUGHLY MASSAGE INTO SKIN FRO M HEAD TO SOLES OF FEET) BY TOPICAL ROUTE ONCE LEAVE ON FOR 8-14 HR, THEN REMOVE BY THOROUGH WASHING prednisone 20 mg tablet Completed ? 11/28/19 14 Take 2 tablets every day by oral route for 5 days. tramadol hcl 50 mg tabs Completed ? 05/01/20 15
--- OUTSIDE RECORDS SUMMARY | 2021-06-06 07:47 | XMS_ITS ---
:1970 Author Care Team Providers Name Role Phone HANNAH TORRES MD Primary Care Provider [phone] Allergies Code Code System Name Reaction Severity Status Onset NKDA ? Medications Name Status Start Date Stop Date ? ? amoxicillin 875 mg-potassium Completed ? clavulanate 125 mg tablet cyclobenzaprine 10 mg tablet Completed ? 08/2016 diclofenac sodium 75 mg tablet,delayed release Active ? Not available TAKE 1 TABLET BY MOUTH TWICE DAILY NEEDED fluticasone propionate 50 mcg/actuation Completed ? 01/07/2017 nasal spray,suspension gabapentin 300 mg capsule Completed ? 2017 Take 1 capsule every day by oral route at bedtime. ketoconazole 2 % topical cream Completed ? 0 05/01/2015 apply to affected area bid x 4-6 weeks Linzess 145 mcg capsule Active ? Not avai lable Take 1 capsule every day by oral route. peg 3350-electrolytes 236 gram-22.74 Completed ? 12/19/2020 gram-6.74 gram-5.86 gram solution penicillin V potassium 500 mg tablet Completed ? 06/11/2020 permethrin 5 % topical cream Completed ? APPLY (THOROUGHLY MASSAGE INTO SKIN FRO M HEAD TO SOLES OF FEET) BY TOPICAL ROUTE ONCE LEAVE ON FOR 8-14 HR, THEN REMOVE BY THOROUGH WASHING prednisone 20 mg tablet Completed ? 11/28/19 14 Take 2 tablets every day by oral route for 5 days. Suprep Bowel Prep Kit 17.5 gram-3.13 gram-1.6 gram oral solution Completed ? 12/19/2020 DIRECTED triamcinolone acetonide 0.1 % topical ointment Completed
== END 2021-06-02 12:55 | disposition home or self-care (01) | DRG 223 ==
LOC: ANH2MED 17:38
PROVIDERS: Admitting Provider Surgery; PCP Family Medicine; Visit Provider Surgery
PROC: 0DSM0ZZ Reposition Descending Colon, Open Approach (ICD-10-PCS; CPT 44620; principal; 2021-05-29 10:30)
DX: Z43.3 Encounter for attention to colostomy (principal); F17.210 Nicotine dependence, cigarettes, uncomplicated; D64.9 Anemia, unspecified; Z90.49 Acquired absence of other specified parts of digestive tract; Z98.1 Arthrodesis status
CPT/HCPCS: 36415; 80048; 85027; 86850; 86900; 86901; 88305; 88307; A9270; C1729; J0690; J1100; J1170; J1650; J1885; J2250; J2270; J2405; J2704; J2710; J3010; J3480; J7120

== ENCOUNTER 2021-06-05 10:39 | Outpatient (CLI) | payer BC, SELFPAY ==
[2021-06-05 11:12] LABS: EDCOVIDSCREEN Negative (Negative)
== END 2021-06-05 10:40 | disposition home or self-care (01) ==
PROVIDERS: PCP Family Medicine; Visit Provider Surgery
DX: Z01.812 Encounter for preprocedural laboratory examination (principal); Z20.822 Contact with and (suspected) exposure to COVID-19
CPT/HCPCS: 87426; C9803

== ENCOUNTER 2021-06-06 14:17 | Inpatient (IN) | payer BC, SELFPAY ==
[2021-06-05] VITALS (12 sets, daily range): BP systolic 145–197; BP diastolic 79–103; PULSE 58–81; RESP 14–22; TEMP 36.4–36.8; O2SAT 93–100; BMI 20.4; BMI 19.8
--- NOTE | 2021-06-05 11:37 | WPDHPUPDATE1 ---
History and Physical Update Update Date/Time: 06/05/21 11:37 History and Physical has been reviewed, including an updated exam of the patient. There are NO changes in the patient's condition. Risks, benefits, and alternatives have been discussed and questions answered. Patient agrees to proceed with procedure.
[2021-06-05] MEDS: LACTATED RINGERS 1,000 ML 30 ML IV CONT ×2 (15:30→20:20)
--- NOTE | 2021-06-05 15:30 | SUR.PREOP ---
1530- Notified patient and significant other Carlie procedure start time will be delayed. Patient and Carlie verbalized understanding.
--- NOTE | 2021-06-05 15:46 | P.PNAN_ITS ---
Anes - Initial Pre Proc Eval Procedure: Operation Date: 06/05/21 16:00 Proposed Procedures p Repair Abdominal Fascial Dehiscence - Beck Villatoro MD Date/Time: 06/05/21 15:46 Surgeon: Beck Villatoro MD Pre Op Diagnosis: fascial dehiscence, evisceration Patient Data Age: 51 Gender: M Height: 1.73 m Weight: 59.3 kg Last Vital Signs Temp 36.6 C 06/05/21 14:10 Pulse 63 06/05/21 14:10 Resp 14 06/05/21 14:10 BP 145/79 H 06/05/21 14:10 Pulse Ox 100 06/05/21 14:10 Allergies Allergy/AdvReac Type Severity Reaction Status Date / Time No Known Allergies Allergy Verified 06/05/21 14:19 Home Medications Medication Instructions Recorded Confirmed Type diclofenac sodium 75 mg PO BID 05/14/21 06/05/21 History hydrocodone-acetaminophen 1 tablet PO Q4-6H PRN #20 tablet 06/02/21 06/05/21 Rx acetaminophen 1,000 mg PO Q6H PRN 06/05/21 06/05/21 History Patient hx anesthesia problems: none Family hx anesthesia problems: none Results Review: All pre-operative results and documents have been reviewed as part of the pre-operative evaluation. FOR[facility]LY [facility] Past Medical History Medical History (Updated 06/05/21 @ 10:09 by Shira Araiza) Colon perforation due to colon obstruction, led to fecal peritonitis, resection 02/03/2021 Colon stricture due to diverticular disease, resected 02/03/2021 Diverticulosis Resected 02/03/2021. Associated with sigmoid stricture and subsequent obstruction, proximal perforation and fecal peritonitis. Fecal peritonitis treated with sigmoidectomy and Nader procedure 02/03/2021 Surgical History Surgical History (Updated 06/05/21 @ 10:09 by Shira Araiza) History of colon resection sigmoid colon resection with end descending colostomy, Nader procedure; Incidental appendectomy History of colostomy reversal 05/29/2021 closure end descending colostomy with stapled colorectal anastomosis S/P cervical spinal fusion Social History Social History Smoking packs per day: 1 Smoking cigarettes per day: 20.0 Years smoked: 20 Smoking pack-years: 20.00 Smoking status: Current every day smoker Tobacco type: cigarettes Alcohol intake: never Substance use: current Substance use type: marijuana Other substance usage details: 02/01/21 Last use: 02/01/21 Living arrangements: with family Gender identity (if verbalized by the patient): Male Spiritual care concerns: No Anes - Eval Final PreProcedure Day of Procedure 06/05/21 15:46 Patient weight: thin Heart: regular rate and rhythm Lungs: clear to auscultation and normal air movement Airway: Mallampati scale class II Neurological: alert and oriented Last oral intake: >/= 8 hours ASA classification: III Emergent: no Anesthetic plan: proceed Anesthesia type and monitoring: general ETT and standard monitoring Results Review: All pre-operative results and documents have been reviewed as part of the pre-operative evaluation. Informed Consent: The patient's anesthetic plan and its attendant risks and benefits were discussed with the patient/family/POA. Questions were solicited and answers provided to the satisfaction of the patient/family/POA.
[2021-06-05] MEDS: ceFAZolin 2 GM/D5W 50 ML 2 GM/50 ML BAG IVPB (18:21)
[2021-06-05] MEDS: LIDO 1%/EPINEPHRINE 1:100,000 50 ML VIAL 10 ML INFILTRATE (18:38)
--- NOTE | 2021-06-05 19:49 | W.PM.PROC2 ---
Procedure Note - Detailed Date of Procedure 06/05/21 Pre-op Diagnosis fascial dehiscence, evisceration Post-op Diagnosis same Procedure Performed Repair fascial dehiscence Surgeon Beck Villatoro MD Front Office Representative Lizzie White [facility] Anesthesia general Indications Patient underwent closure of end descending colostomy with colorectal anastomosis about 1 week ago. He was seen in the office today for wound check and staple removal. He had some serous drainage coming from the upper aspect of the wound. Once the javier were removed I probed the wound and found a fascial dehiscence with some small intestine coming in and out of the opening. He is taken to surgery now for repair of the fascial dehiscence. Findings Fascial dehiscence upper aspect of the wound. It was about 3 cm long and 1 cm wide. It appeared the fascia had pulled through as all the suture material was intact. No other fascial wound openings were appreciated. Description of Procedure Patient was taken to surgery and induced into general anesthesia. The abdomen was prepped and draped. The skin incision was opened the length of the wound using gentle traction or scalpel. We then removed all the fascial sutures. Findings were as above. Eventually the entire wound including the previous fascial closure was opened. Prior to closing the wound, I undermined the subcutaneous so that even bigger bites of fascia could be taken with the closing suture. This was done at the level of the subcutaneous just above the fascia. This was done throughout the area of the wound. I then thoroughly irrigated the wound and the anterior peritoneal cavity with warm saline. We checked for hemostasis which was achieved. The wound was then closed with larger bites of 1. PDS but with less than a cm between each bite. This required 3 of the PDS sutures to complete the fascial closure. Once complete, the wound closure looked quite good. The wound was again irrigated and hemostasis was achieved. A 15 Lao Kieran drain was placed just over the fascia and brought out the right lower quadrant. The drain was sutured to the skin with 2-0 silk. I then closed the subcutaneous over the drain with interrupted 3 0 Vicryl suture. The skin was closed with wide javier. The wound was dressed with Xeroform gauze fluffs ABDs and Medipore tape. The patient was awakened and taken to recovery in good condition. Sponge and needle counts were correct x2. Estimated blood loss 50 cc. Estimated Blood Loss -50.0 Drains Yes (MARILIN drain subcutaneous) Packing No Pathology none sent Complications No immediate complications Condition stable Disposition PACU
[2021-06-05] MEDS: fentaNYL CITRATE INJ (*CRX) 100 MCG/2 ML VIAL 25 MCG IV PUSH ×8 (19:56→20:29)
--- NOTE | 2021-06-05 20:03 | SUR.PHASEI ---
DR HORTON AT BEDSIDE. PT C/O PAIN 05/18. BP ELEVATED. 190'S/100'S. HR 58. VERBAL ORDER FOR HYDRALAZINE 10MG IV
[2021-06-05] MEDS: hydrALAZINE HCL 20 MG/ML VIAL 10 MG IV PUSH (20:04)
--- NOTE | 2021-06-05 20:24 | SUR.PHASEI ---
PT GRIMACING. STATES PAIN REMAINS 05/18. DR HORTON NOTIFIED. BP 170S/80S
[2021-06-05] MEDS: HYDROmorphone HCL INJ (*CRX) 1 MG/ML SYR 0.5 MG IV PUSH ×4 (20:37→20:57)
--- NOTE | 2021-06-05 20:48 | SUR.PHASEI ---
DR HORTON HERE TO SEE PT. VSS. PT STATES PAIN A LITTLE BETTER . PT MORE RELAXED NOW.
--- NOTE | 2021-06-05 21:00 | SUR.PHASEI ---
PT STATES URGE TO VOID. GIVEN URINAL. PT FELL ASLEEP WHILE TRYING TO VOID.
--- NOTE | 2021-06-05 21:35 | PC.NURSE ---
PT TO FLOOR FROM OR PER STRETCHER
[2021-06-05] MEDS: LACTATED RINGERS 1,000 ML 100 ML IV CONT (22:00)
[2021-06-05] MEDS: MORPHINE SULFATE PCA (*CRX) 30 MG/30 ML SYR IV CONT (22:43)
[2021-06-06] VITALS (18 sets, daily range): BP systolic 141–152; BP diastolic 78–95; PULSE 63–88; RESP 14–20; TEMP 36.6–37.1; O2SAT 91–98
[2021-06-06] MEDS: FAMOTIDINE 20 MG/2 ML VIAL IV PUSH (00:42)
[2021-06-06] MEDS: MORPHINE SULFATE PCA (*CRX) 30 MG/30 ML SYR IV CONT ×4 (03:40→23:19)
[2021-06-06 05:29] LABS: Hematocrit 37.3 % (42.0-52.0); Hemoglobin 12.5 g/dL (14.0-18.0); Mean Corpuscular HGB Conc 33.5 g/dl (32-36); Mean Corpuscular Hemoglobin 29.3 pg (26-34); Mean Corpuscular Volume 87.4 fl (80-100); Mean Platelet Volume 10.1 fl (7.4-10.4); Platelet Count Result 529 k/mm3 (150-375); Red Blood Count 4.27 M/mm3 (4.6-6.20); White Blood Count 15.5 K/mm3 (4.5-10.0)
[2021-06-06 05:44] LABS: Anion Gap 9 mmol/L (8-16); Blood Urea Nitrogen 9 mg/dL (9-20); Calcium 9.3 mg/dL (8.4-10.2); Carbon Dioxide 23 mmol/L (22-30); Chloride 102 mmol/L (98-107); Estimated CRCL calculation 103 ml/min; Estimated Glomerular Filt Rate > 60; Glucose 114 mg/dL (65-110); Sodium 134 mmol/L (137-145)
--- NOTE | 2021-06-06 07:27 | PM.PNGS ---
Progress Note: A&P Assessment and Plan (1) Dehiscence of closure of fascia, superficial or muscular: Code(s): T81.32XA - Disruption of internal operation (surgical) wound, not elsewhere classified, initial encounter Status: Acute Assessment and Plan: Doing as expected status post repair of abdominal fascial dehiscence with evisceration. Continue HUMAN SERVICES PROFESSIONAL and MARILIN drain. Advance diet as tolerated. Start dressing changes daily. Home when more comfortable and ambulatory. (2) Evisceration of bowel: Status: Acute (3) Smoker: Code(s): F17.200 - Nicotine dependence, unspecified, uncomplicated Status: Chronic Assessment and Plan: On nicotine patch. Advised to quit. Subjective Subjective Date/Time Seen: 06/06/21 07:27 Post Op day: 1 Patient reports: still having pain, tolerating liquids well, no flatus, no bowel movement and afebrile Review of Systems Review of Systems: All systems reviewed & are unremarkable except as noted in HPI and below Constitutional: Constitutional: Denies chills, Denies fatigue and Denies headache(s) Cardiovascular: Cardiovascular: Denies chest pain and Denies dyspnea Respiratory: Respiratory: Denies cough and Denies dyspnea Neurologic: Denies confusion and Denies headache(s) Exam Const: General: comfortable and no acute distress; No confusion Orientation/consciousness: patient oriented x3 and No confusion Resp: Effort & Inspection: normal respiratory effort Auscultation: clear to auscultation bilaterally GI: Inspection: incision (Dressing dry and intact, serosanguineous MARILIN output) and scaphoid GI Palp: Yes Soft to palpation, Yes Tenderness to palpation present (GI), No Guarding due to palpation present (GI) and No Rebound tenderness present Auscultation: normal bowel sounds Neuro: General: patient oriented x3, no focal motor deficits and No confusion Extrem: General: no calf tenderness and no edema Psych: Affect: normal affect Insight: Good insight present (Psych) Judgement: Good judgement present (Psych) Objective Data Vital Signs Vital Signs: Vital Signs - 24 hr 06/05/21 14:10 06/05/21 19:36 06/05/21 19:50 Temperature 36.6 C 36.4 C L Pulse Rate 63 72 58 L Respiratory Rate 14 20 22 H Blood Pressure 145/79 H 179/96 H 186/103 H Pulse Oximetry 100 100 100 06/05/21 20:05 06/05/21 20:20 06/05/21 20:35 Temperature Pulse Rate 62 64 70 Respiratory Rate 20 20 20 Blood Pressure 197/103 H 172/90 H 166/90 H Pulse Oximetry 100 93 93 06/05/21 20:50 06/05/21 21:05 06/05/21 21:57 Temperature 36.4 C Pulse Rate 72 72 69 Respiratory Rate 18 16 16 Blood Pressure 168/90 H 166/88 H 163/91 H Pulse Oximetry 93 94 97 06/05/21 22:13 06/05/21 23:41 06/05/21 23:45 Temperature 36.7 C 36.8 C Pulse Rate 77 81 Respiratory Rate 18 18 20 Blood Pressure 171/86 H 169/92 H Pulse Oximetry 97 97 06/06/21 00:45 06/06/21 01:40 06/06/21 02:40 Temperature Pulse Rate Respiratory Rate 18 18 20 Blood Pressure Pulse Oximetry 06/06/21 03:40 06/06/21 05:28 Temperature 36.6 C Pulse Rate 70 Respiratory Rate 18 14 Blood Pressure 148/82 H Pulse Oximetry 98 Intake/Output Intake/Output: Intake & Output 06/03/21 06/04/21 06/05/21 06/06/21 23:59 23:59 23:59 23:59 Intake Total 550 430 Output Total 5 1050 Balance 545 -620 Meds/Results Medications: Active Medications Generic Name Dose Route Start Last Admin Trade Name Freq PRN Reason Stop Dose Admin Acetaminophen 500 mg 06/05/21 21:11 Acetaminophen 500 Mg Tablet PO Q6H PRN Mild Pain (1-3) or Fever Enoxaparin Sodium 40 mg 06/06/21 09:00 Enoxaparin 40 Mg/0.4 Ml Syringe SUB-Q DAILY MINDY Famotidine 20 mg 06/06/21 09:00 Famotidine 20 Mg Tablet PO Q12HR MINDY Lactated Ringer's 1,000 mls @ 80 mls/hr 06/05/21 21:11 06/05/21 22:00 Lr - Lactated Ringers Iv IV CONT 100 mls/hr .[id number] MINDY Administration Morphine S
[2021-06-06] MEDS: LACTATED RINGERS 1,000 ML 80 ML IV CONT ×2 (07:59→20:44)
[2021-06-06] MEDS: ENOXAPARIN 40 MG/0.4 ML SYRINGE SUB-Q (08:00)
[2021-06-06] MEDS: FAMOTIDINE 20 MG TABLET PO ×2 (08:00→20:45)
[2021-06-06] MEDS: NICOTINE (*PBKC) 14 MG PATCH 1 PATCH TRANSDERM (08:01)
--- NOTE | 2021-06-06 13:11 | WPDANESPN ---
Anes - Prog Note Post-Op Date/Time: 06/06/21 13:11 Cardiovascular status: normal Respiratory status: normal Airway patency: baseline Mental status: baseline Post-Op hydration status: normal Vital Signs: Last Vital Signs Temp 36.9 C 06/06/21 08:00 Pulse 88 06/06/21 08:00 Resp 16 06/06/21 11:00 BP 152/95 H 06/06/21 08:00 Pulse Ox 94 06/06/21 11:00 Pain Score (VAS): 3 I/O: Intake & Output 06/05/21 06/06/21 06/06/21 23:59 07:59 15:59 Intake Total 550 1430 30 Output Total 5 1050 Balance 545 380 30 Laboratory Tests 06/06/21 04:56 06/06/21 04:56 06/06/21 06/06/21 04:56 04:56 WBC 15.5 H RBC 4.27 L Hgb 12.5 L Hct 37.3 L MCV 87.4 MCH 29.3 MCHC 33.5 RDW 17.0 H Plt Count 529 H D MPV 10.1 Sodium 134 L Potassium 5.0 Chloride 102 Carbon Dioxide 23 Anion Gap 9 BUN 9 Creatinine 0.60 L Estim Creat Clear Calc 103 Estimated GFR > 60 Glucose 114 H Calcium 9.3 Post-procedural complaints: none Patient Feedback: Patient satisfied with anesthetic care.
[2021-06-07] VITALS (8 sets, daily range): BP systolic 109–137; BP diastolic 71–83; PULSE 61–89; RESP 16–18; TEMP 36.5–37.4; O2SAT 92–95
[2021-06-07 05:51] LABS: Hematocrit 34.1 % (42.0-52.0); Hemoglobin 11.5 g/dL (14.0-18.0); Mean Corpuscular HGB Conc 33.7 g/dl (32-36); Mean Corpuscular Hemoglobin 28.7 pg (26-34); Mean Platelet Volume 9.9 fl (7.4-10.4); Platelet Count Result 522 k/mm3 (150-375); Red Blood Count 4.01 M/mm3 (4.6-6.20); Red Cell Distribution Width 16.9 % (11.5-14.5); White Blood Count 12.8 K/mm3 (4.5-10.0)
[2021-06-07 06:08] LABS: Anion Gap 6 mmol/L (8-16); Blood Urea Nitrogen 10 mg/dL (9-20); Calcium 8.8 mg/dL (8.4-10.2); Carbon Dioxide 29 mmol/L (22-30); Chloride 97 mmol/L (98-107); Estimated CRCL calculation 89 ml/min; Estimated Glomerular Filt Rate > 60; Glucose 86 mg/dL (65-110); Potassium 3.8 mmol/L (3.4-5.0); Sodium 132 mmol/L (137-145)
[2021-06-07] MEDS: MORPHINE SULFATE PCA (*CRX) 30 MG/30 ML SYR IV CONT (06:23)
[2021-06-07] MEDS: FAMOTIDINE 20 MG TABLET PO ×2 (08:58→20:31)
[2021-06-07] MEDS: NICOTINE (*PBKC) 14 MG PATCH 1 PATCH TRANSDERM (08:58)
[2021-06-07] MEDS: ENOXAPARIN 40 MG/0.4 ML SYRINGE SUB-Q (08:59)
[2021-06-07] MEDS: LACTATED RINGERS 1,000 ML 30 ML IV CONT (09:21)
--- NOTE | 2021-06-07 11:00 | PM.PNGS ---
Progress Note: A&P Assessment and Plan (1) Dehiscence of closure of fascia, superficial or muscular: Code(s): T81.32XA - Disruption of internal operation (surgical) wound, not elsewhere classified, initial encounter Status: Acute Assessment and Plan: advance diet to regular diet today. Encourage increased ambulation. Stop BPM SOLUTION ARCHITECT and transition to oral pain meds. Possibly home tomorrow if continuing to improve. (2) Evisceration of bowel: Status: Acute (3) Smoker: Code(s): F17.200 - Nicotine dependence, unspecified, uncomplicated Status: Chronic Subjective Subjective Date/Time Seen: 06/07/21 11:00 Interval history: Awaiting full liquids but not much appetite yet. No bowel movement yet. Pain controlled with BPM SOLUTION ARCHITECT, but not ambulating much yet. Urinating without difficulty. Exam GI: Inspection: incision ( Intact with javier.) and no visible herniation GI Palp: Yes Soft to palpation and Yes Tenderness to palpation present (GI) ( Incisional) Auscultation: normal bowel sounds Objective Data Vital Signs Vital Signs: Vital Signs - 24 hr 06/06/21 12:00 06/06/21 13:00 06/06/21 15:00 Temperature 37.1 C Pulse Rate 64 Respiratory Rate 18 16 16 Blood Pressure 151/86 H Pulse Oximetry 95 94 92 06/06/21 16:00 06/06/21 17:00 06/06/21 19:00 Temperature 36.8 C Pulse Rate 63 Respiratory Rate 16 16 16 Blood Pressure 141/78 H Pulse Oximetry 92 94 94 06/06/21 19:52 06/06/21 21:14 06/06/21 23:19 Temperature 36.9 C Pulse Rate 68 67 Respiratory Rate 16 16 18 Blood Pressure 144/94 H Pulse Oximetry 94 93 94 06/07/21 01:00 06/07/21 04:47 06/07/21 04:53 Temperature 36.5 C 36.7 C Pulse Rate 61 63 Respiratory Rate 16 16 16 Blood Pressure 123/72 134/71 Pulse Oximetry 93 92 92 06/07/21 06:23 06/07/21 09:00 Temperature 36.8 C Pulse Rate 72 Respiratory Rate 18 18 Blood Pressure 126/83 Pulse Oximetry 94 93 Intake/Output Intake/Output: Intake & Output 06/04/21 06/05/21 06/06/21 06/07/21 23:59 23:59 23:59 23:59 Intake Total 550 3400 1810 Output Total 5 7375 805 Balance 545 1155 1005 Meds/Results Medications: Active Medications Generic Name Dose Route Start Last Admin Trade Name Freq PRN Reason Stop Dose Admin Acetaminophen 500 mg 06/05/21 21:11 Acetaminophen 500 Mg Tablet PO Q6H PRN Mild Pain (1-3) or Fever Hydrocodone Bitart/Acetaminophen 1 tab 06/07/21 10:56 Hydrocodone/Acetaminophen (*Crx) 5-325 Mg Tablet PO Q4H PRN Pain Rated 4-6 Hydrocodone Bitart/Acetaminophen 1 tab 06/07/21 10:56 Hydrocodone/Acetaminophen (*Crx) 10-325 Mg Tablet PO Q6H PRN Pain Rated 7-10 Enoxaparin Sodium 40 mg 06/06/21 09:00 06/07/21 08:59 Enoxaparin 40 Mg/0.4 Ml Syringe SUB-Q 40 mg DAILY MINDY Administration Famotidine 20 mg 06/06/21 09:00 06/07/21 08:58 Famotidine 20 Mg Tablet PO 20 mg Q12HR MINDY Administration Lactated Ringer's 1,000 mls @ 0 mls/hr 06/05/21 21:11 06/07/21 09:21 Lr - Lactated Ringers Iv IV CONT 30 mls/hr .[id number] MINDY Administration KVO Morphine Sulfate 2 mg 06/07/21 10:56 Morphine Sulfate (*Crx) 2 Mg/Ml Inj IV PUSH Q2H PRN Pain Rated 4-6 Morphine Sulfate 4 mg 06/07/21 10:56 Morphine Sulfate (*Crx) 4 Mg/Ml Inj IV PUSH Q2H PRN Pain Rated 7-10 Nicotine 1 patch 06/06/21 09:00 06/07/21 08:58 Nicotine (*Pbkc) 14 Mg Patch TRANSDERM 1 patch QAM MINDY Administration Ondansetron HCl 4 mg 06/05/21 21:11 Ondansetron Inj 4 Mg/2 Ml Vial IV PUSH Q4H PRN Nausea And Vomiting Polyethylene Glycol 17 gm 06/07/21 11:00 Polyethylene Glycol 3350 17 Gm Powd.Pack PO QAM MINDY Labs Labs: Laboratory Results - last 24 hr 06/07/21 06/07/21 05:04 05:04 WBC 12.8 H RBC 4.01 L Hgb 11.5 L Hct 34.1 L MCV 85.0 MCH 28.7 MCHC 33.7 RDW 16.9 H Plt Count 522 H MPV 9.9 Sodium 132 L Po
[2021-06-07] MEDS: HYDROcodone/acetaminophen (*CRX) 5-325 MG TABLET 1 TAB PO ×2 (12:20→16:43)
[2021-06-07] MEDS: polyethylene glycoL 3350 17 GM POWD.PACK PO (12:20)
[2021-06-07] MEDS: HYDROcodone/acetaminophen (*CRX) 10-325 MG TABLET 1 TAB PO (20:30)
[2021-06-08] MEDS: HYDROcodone/acetaminophen (*CRX) 10-325 MG TABLET 1 TAB PO (02:29)
[2021-06-08 05:00] VITALS: BP 114/71; PULSE 62; RESP 14; TEMP 36.9; O2SAT 95
[2021-06-08 05:19] LABS: Hematocrit 32.7 % (42.0-52.0); Mean Corpuscular HGB Conc 33.6 g/dl (32-36); Mean Corpuscular Hemoglobin 29.8 pg (26-34); Mean Corpuscular Volume 88.6 fl (80-100); Mean Platelet Volume 9.5 fl (7.4-10.4); Platelet Count Result 472 k/mm3 (150-375); Red Blood Count 3.69 M/mm3 (4.6-6.20); Red Cell Distribution Width 16.6 % (11.5-14.5); White Blood Count 10.9 K/mm3 (4.5-10.0)
[2021-06-08 05:33] LABS: Anion Gap 8 mmol/L (8-16); Blood Urea Nitrogen 9 mg/dL (9-20); Calcium 8.9 mg/dL (8.4-10.2); Carbon Dioxide 26 mmol/L (22-30); Chloride 98 mmol/L (98-107); Estimated CRCL calculation 89 ml/min; Estimated Glomerular Filt Rate > 60; Glucose 98 mg/dL (65-110); Potassium 3.9 mmol/L (3.4-5.0); Sodium 132 mmol/L (137-145)
[2021-06-08 08:55] VITALS: BP 123/64; PULSE 71; RESP 16; TEMP 36.7; O2SAT 95
[2021-06-08] MEDS: ENOXAPARIN 40 MG/0.4 ML SYRINGE SUB-Q (09:13)
[2021-06-08] MEDS: HYDROcodone/acetaminophen (*CRX) 5-325 MG TABLET 1 TAB PO (09:13)
[2021-06-08] MEDS: FAMOTIDINE 20 MG TABLET PO (09:14)
[2021-06-08] MEDS: NICOTINE (*PBKC) 14 MG PATCH 1 PATCH TRANSDERM (09:14)
[2021-06-08] MEDS: polyethylene glycoL 3350 17 GM POWD.PACK PO (09:14)
--- NOTE | 2021-06-08 10:57 | PM.DS ---
DS: Admitting Diagnosis Discharge Date 06/08/2021 Admitting Diagnosis wound dehiscence and evisceration of bowel DS: Discharge Diagnosis Discharge Diagnosis (1) Dehiscence of closure of fascia, superficial or muscular: Qualifiers: Encounter type: subsequent encounter Qualified Code(s): T81.32XD - Disruption of internal operation (surgical) wound, not elsewhere classified, subsequent encounter Code(s): T81.32XA - Disruption of internal operation (surgical) wound, not elsewhere classified, initial encounter Status: Acute (2) Evisceration of bowel: Status: Acute (3) Smoker: Code(s): F17.200 - Nicotine dependence, unspecified, uncomplicated Status: Chronic DS: Summary Hospital Course Reason for hospitalization: fascial dehiscence and evisceration of bowel Hospital Course: this is a 51-year-old man who is status post colostomy takedown on 05/29/2021. He presented to the office on 06/05 and was found to have fascial dehiscence with bowel protruding into wound. He was taken back to surgery on 06/[address] Villatoro and fascia was closed. He was then admitted for postoperative recovery. He was started initially on a morphine BREAKER MECHANIC for pain control. His diet was slowly advanced as tolerated. He was remaining hemodynamically stable. On postop day 2 who was advanced to a regular diet and BREAKER MECHANIC was discontinued and he was transitioned to oral pain meds. On postop day 3 his bowels were moving and he was tolerating pain control. His wound appeared to be healing well and MARILIN drain that was placed at the time of surgery was draining minimal serosanguineous output. He was discharged on 06/08/2021. Time spent discussing smoking cessation with patient: 3 to 10 minutes Status at Discharge Functional status at discharge: independent ambulation Overall status at discharge: patient is progressing back to baseline Time Spent with Patient Time attestation: Total time spent providing and/or coordinating discharge services: Time spent: Less than 30 minutes Exam Const: General: cooperative and no acute distress Orientation/consciousness: patient oriented x3 Resp: Effort & Inspection: normal respiratory effort Auscultation: clear to auscultation bilaterally Cardio: Rate: regular rate Rhythm: regular rhythm Heart sounds: S1 normal heart sound present and S2 normal heart sound present GI: Inspection: incision ( Intact with javier) and other ( MARILIN with minimal serosanguineous output) Auscultation: normal bowel sounds DS: Data Data Completed and Pending Labs on day of discharge: Labs from last 24 hours 06/08/21 06/08/21 04:58 04:58 WBC 10.9 H RBC 3.69 L Hgb 11.0 L Hct 32.7 L MCV 88.6 MCH 29.8 MCHC 33.6 RDW 16.6 H Plt Count 472 H MPV 9.5 Sodium 132 L Potassium 3.9 Chloride 98 Carbon Dioxide 26 Anion Gap 8 BUN 9 Creatinine 0.70 Estim Creat Clear Calc 89 Estimated GFR > 60 Glucose 98 Calcium 8.9 Discharge Plan Discharge Attending physician on discharge: Beck Villatoro Discharging Clinician: Feliciano Membreno Patient Disposition: Home, Self-Care Activity: may shower Diet: regular Wound Care Instructions: remove dressing to shower and change dressing daily Discharge Instructions: Empty MARILIN drain at least daily and record output in mL on a 24 hour basis. Bring record of daily MARILIN drain outputs to office visit. no lifting greater than 10 lb Patient Instructions: How to Stop Smoking (DC) Follow-up/Referrals: Beck Villatoro MD [Physician] - Keep Reg. Scheduled Appt. Discharge Medications: New hydrocodone-acetaminophen 5-325 mg tablet 1 tablet PO Q4H PRN (Reason: pain) Qty: 20 RF: 0 Continued acetaminophen 500 mg Tablet 1,000 mg PO Q6H PRN (Reason: Pain) RF: 0 diclofenac sodium 75 mg tablet,delayed release (DR/EC) 75 mg PO BID RF: 0 hydrocodone-acetaminophen 5-325 mg Tablet 1 tablet PO Q4
== END 2021-06-08 12:05 | disposition home or self-care (01) | DRG 794 ==
LOC: ANHSURGERY 06-26 08:06
PROVIDERS: Admitting Provider Surgery; PCP Family Medicine; Visit Provider Surgery
PROC: 0HQ7XZZ Repair Abdomen Skin, External Approach (ICD-10-PCS; CPT 49900; principal; 2021-06-05 16:00)
DX: T81.32XA Disruption of internal operation (surgical) wound, not elsewhere classified, initial encounter (principal); F17.210 Nicotine dependence, cigarettes, uncomplicated; Z28.21 Immunization not carried out because of patient refusal; Z79.899 Other long term (current) drug therapy
CPT/HCPCS: 36415; 80048; 85027; A9270; J0330; J0360; J0690; J1100; J1170; J1650; J2250; J2270; J2405; J2704; J2710; J3010; J7120

== ENCOUNTER 2023-01-14 11:31 | Emergency (ER) | payer BC, SELFPAY ==
--- NOTE | 2023-01-14 11:35 | ED.SKABFB ---
HPI - Skin/Abscess/Foreign Bdy General Chief complaint: Skin/Abscess/Foreign Body Stated complaint: Rash Source: patient and RN notes reviewed History of Present Illness HPI narrative: 52 yo M presents to urgent care with complaints of an itchy rash to his scalp for the last few months. Pt states he now has the same rash to his abdomen and back. Pt reports associated pruritis. Pt denies any new soaps, lotions, foods, or medication. Pt states he has tried Claritin at home with good relief. Related Data Home Medications Medication Instructions Recorded Confirmed diclofenac sodium 75 mg 75 mg PO BID 05/14/21 01/14/23 tablet,delayed release Allergies Allergy/AdvReac Type Severity Reaction Status Date / Time No Known Allergies Allergy Verified 01/14/23 11:35 Review of Systems Review of Systems: CONSTITUTIONAL: Denies fever, chills, or sweats. EYES: Denies visual changes, redness, or discharge. ENT: Denies otalgia and sore throat CARDIOVASCULAR: Denies chest pain, palpitations, or edema. RESPIRATORY: Denies cough or dyspnea. GASTROINTESTINAL: Denies abdominal pain, nausea, vomiting, or diarrhea. GENITOURINARY: Denies dysuria or hematuria. SKIN:ithcy rash MUSCULOSKELETAL: Denies back pain, joint pain, or myalgia. NEUROLOGIC: Denies headache, numbness, or weakness. Pertinent positives per HPI. [facility] Past Medical History Medical History Colon perforation due to colon obstruction, led to fecal peritonitis, resection 02/03/2021 Colon stricture due to diverticular disease, resected 02/03/2021 Diverticulosis Resected 02/03/2021. Associated with sigmoid stricture and subsequent obstruction, proximal perforation and fecal peritonitis. Fecal peritonitis treated with sigmoidectomy and Nader procedure 02/03/2021 Surgical History Surgical History Dehiscence of fascia repair fascial dehiscence 06/05/21 History of colon resection sigmoid colon resection with end descending colostomy, Nader procedure; Incidental appendectomy History of colostomy reversal 05/29/2021 closure end descending colostomy with stapled colorectal anastomosis S/P cervical spinal fusion Family History Family History Other History of colostomy reversal Social History Social History Smoking packs per day: 1 Smoking cigarettes per day: 20.0 Years smoked: 20 Smoking pack-years: 20.00 Smoking status: Current every day smoker Tobacco type: cigarettes Alcohol intake: never Substance use: current Substance use type: marijuana Last use: 05/27/21 Living arrangements: with family Gender identity (if verbalized by the patient): Male Spiritual care concerns: No Comments At the time of my signature, I reviewed and agree with the nursing past medical, surgical, social, and family history. There is no relevant family history pertinent to the patient complaint. Exam Narrative: GENERAL: This is a well-nourished, well-developed patient, in no apparent distress. HEAD: normocephalic, atraumatic. EYES: Sclera clear/white. Vision is grossly intact. EARS: External ears normal, auditory canals clear and without drainage, TMs normal without perforation. Hearing grossly intact. NOSE: External nose normal with no obvious nasal discharge, nares without redness, no rhinorrhea. THROAT: Mucous membranes moist, posterior pharynx clear. NECK: Neck supple, non-tender without lymphadenopathy, masses or thyromegaly. CARDIOVASCULAR: Regular rate and rhythm without murmurs, gallops, or rubs. RESPIRATORY: Clear to auscultation. Breath sounds equal bilaterally. No wheezes, rales, or rhonchi. GASTROINTESTINAL: Abdomen soft, non-tender, nondistended. Bowel sounds are active. No hepato-splenomegaly, or pa
[2023-01-14 11:38] VITALS: BP 139/87; PULSE 67; RESP 16; TEMP 36.7; O2SAT 98
== END 2023-01-14 12:05 | disposition home or self-care (01) ==
PROVIDERS: Emergency Provider Nurse Practitioner Family; PCP Family Medicine
DX: T78.40XA Allergy, unspecified, initial encounter (principal); F17.210 Nicotine dependence, cigarettes, uncomplicated; F12.90 Cannabis use, unspecified, uncomplicated
CPT/HCPCS: 99213; G0463

== ENCOUNTER 2023-03-01 18:07 | Emergency (ER) | payer BC, SELFPAY ==
[2023-03-01 18:41] VITALS: BP 128/81; PULSE 67; RESP 16; TEMP 37.1; O2SAT 98
--- NOTE | 2023-03-01 19:10 | ED.URI ---
HPI - URI/Sore Throat General Chief Complaint: Upper Respiratory Infection Stated Complaint: throat problem History of Present Illness HPI Narrative: 52-year-old male presented for complaint of throat pain for about 3 days. Endorses sinus congestion and drainage and intermittent ear pressure. Denies sick contacts. He is not taking anything for symptoms. Patient was recently treated for 'skin bumps' with Prednisone which he completed yesterday and doxy completed 3 days ago. Denies cough, shortness breath, wheezing, nausea, vomiting, fevers or chills. Related Data Home Medications Medication Instructions Recorded Confirmed diclofenac sodium 75 mg 75 mg PO BID 05/14/21 03/01/23 tablet,delayed release Allergies Allergy/AdvReac Type Severity Reaction Status Date / Time No Known Allergies Allergy Verified 03/01/23 18:44 Review of Systems Review of Systems: CONSTITUTIONAL: Denies body aches, fever, chills, or sweats. EYES: Denies visual changes, redness, or discharge. ENT: Reports sore throat otalgia. Denies rhinorrhea, congestion CARDIOVASCULAR: Denies chest pain, palpitations, or edema. RESPIRATORY: Denies dyspnea. GASTROINTESTINAL: Denies abdominal pain, nausea, vomiting, or diarrhea. SKIN: Denies rash, itching, or wounds. MUSCULOSKELETAL: Denies back pain, joint pain, or myalgia. NEUROLOGIC: Denies headache PMFSH Past Medical History Medical History Colon perforation due to colon obstruction, led to fecal peritonitis, resection 02/03/2021 Colon stricture due to diverticular disease, resected 02/03/2021 Diverticulosis Resected 02/03/2021. Associated with sigmoid stricture and subsequent obstruction, proximal perforation and fecal peritonitis. Fecal peritonitis treated with sigmoidectomy and Nader procedure 02/03/2021 Surgical History Surgical History Dehiscence of fascia repair fascial dehiscence 06/05/21 History of colon resection sigmoid colon resection with end descending colostomy, Nader procedure; Incidental appendectomy History of colostomy reversal 05/29/2021 closure end descending colostomy with stapled colorectal anastomosis S/P cervical spinal fusion Family History Family History Other History of colostomy reversal Social History Social History Smoking packs per day: 1 Smoking cigarettes per day: 20.0 Years smoked: 20 Smoking pack-years: 20.00 Smoking status: Current every day smoker Tobacco type: cigarettes Alcohol intake: never Substance use: current Substance use type: marijuana Last use: 05/27/21 Living arrangements: with family Gender identity (if verbalized by the patient): Male Spiritual care concerns: No Exam Narrative: GENERAL: well-appearing, no acute distress. EYES: conjunctivae clear ENT: Mucous membranes moist. TM pearly roldan with normal light reflex bilaterally; no tragal tenderness. Oropharynx severely erythematous with exudate, Tonsils enlarged 2+ with exudate. No drooling, no hoarseness, no trismus, uvula midline. No tripod positioning, hot potato voice, or soft palate swelling. NECK: Supple. No lymphadenopathy CHEST: Clear to auscultation, breath sounds equal. No respiratory distress, speaks in full sentences. HEART: Regular rate and rhythm. No murmur heard. SKIN: Warm, dry, no rash. NEURO: Alert and oriented x3. Course Course Emergency Course: Patient is aware of diagnosis, understands and agrees to treatment plan. Anticipatory guidance given. Patient agrees to follow-up as directed and is aware of reasons to seek care at the emergency department. Portions of this record may have been created with voice recognition software Level of Care: Express Care Visit Vital Signs Vit
== END 2023-03-01 19:25 | disposition home or self-care (01) ==
PROVIDERS: Emergency Provider Nurse Practitioner Family; PCP Family Medicine
DX: J02.9 Acute pharyngitis, unspecified (principal); F17.210 Nicotine dependence, cigarettes, uncomplicated
CPT/HCPCS: 87081; 87880; 99213; G0463

== ENCOUNTER 2023-10-25 18:36 | Emergency (ER) | payer BC, SELFPAY ==
--- NOTE | ~2023-10-25 | XR_ITS ---
EXAM: XR elbow RT min 3V DATE: 10/25/2023 18:55 HISTORY: infected area . COMPARISON: None available. FINDINGS: Normal mineralization. No fracture or dislocation. No lytic or blastic lesion. Mild degene rative change at the elbow joint. Medial and lateral enthesopathy. No erosion or periosteal change. F ocal soft tissue swelling over the olecranon. IMPRESSION: No acute osseous finding in the right elbow. Right olecranon soft tissue swelling may rep resent olecranon bursitis, with or without infection. Reviewed, dictated and finalized at location K. IMPRESSION: No acute osseous finding in the right elbow. Right olecranon soft t issue swelling may represent olecranon bursitis, with or without infection.
[2023-10-25 19:49] VITALS: BP 132/80; PULSE 71; RESP 15; TEMP 37; O2SAT 99
--- NOTE | 2023-10-25 22:03 | ED.GENADULT ---
HPI - General Adult General Chief complaint: Extremity Injury, Upper Stated complaint: right elbow infection Time Seen by Provider: 10/25/23 21:14 Source: patient Mode of arrival: ambulatory Limitations: no limitations History of Present Illness HPI narrative: This is a 53-year-old male who presents to the ED with chief complaint of right elbow swelling following an injury that happened a couple of days ago. Patient reports that he was walking to her house and hit his elbow pretty hard on the door. He also is on his elbow a lot doing work around house. Denies any difficulty with range of motion. States the pain is mild. Denies fevers, chills, nausea, vomiting. Denies any numbness or weakness. Related Data Home Medications Medication Instructions Recorded Confirmed diclofenac sodium 75 mg 75 mg PO BID 05/14/21 03/01/23 tablet,delayed release Allergies Allergy/AdvReac Type Severity Reaction Status Date / Time amoxicillin Allergy Diarrhea Verified 10/25/23 21:39 Review of Systems Review of Systems: All systems as dictated in [facility] Past Medical History Medical History Colon perforation due to colon obstruction, led to fecal peritonitis, resection 02/03/2021 Colon stricture due to diverticular disease, resected 02/03/2021 Diverticulosis Resected 02/03/2021. Associated with sigmoid stricture and subsequent obstruction, proximal perforation and fecal peritonitis. Fecal peritonitis treated with sigmoidectomy and Nader procedure 02/03/2021 Surgical History Surgical History Dehiscence of fascia repair fascial dehiscence 06/05/21 History of colon resection sigmoid colon resection with end descending colostomy, Nader procedure; Incidental appendectomy History of colostomy reversal 05/29/2021 closure end descending colostomy with stapled colorectal anastomosis S/P cervical spinal fusion Family History Family History Other History of colostomy reversal Social History Social History Smoking packs per day: 1 Smoking cigarettes per day: 20.0 Years smoked: 20 Smoking pack-years: 20.00 Smoking status: Current every day smoker Tobacco type: cigarettes Alcohol intake: never Substance use: current Substance use type: marijuana Last use: 05/27/21 Living arrangements: with family Gender identity (if verbalized by the patient): Male Spiritual care concerns: No Exam Narrative: GENERAL: Well-appearing, well-nourished, and in no acute distress. HEAD: Normocephalic, atraumatic. EYES: PERRLA and EOMI. ENT: Nares clear, no rhinorrhea or epistaxis. Mucous membranes moist. Oropharynx without tonsillar hypertrophy exudate or other lesions. NECK: Supple. No adenopathy or masses. CHEST: No respiratory distress. Clear to auscultation. No wheezes rales or rhonchi HEART: Regular rate and rhythm. No murmur heard. Normal peripheral pulses. ABDOMEN: Soft, nontender, nondistended, normal active bowel sounds. MSK: Focal area fluctuance to the posterior elbow/olecranon. There is mild erythema in the area. Minimal tenderness. Full range of motion of the elbow. No surrounding erythema or induration SKIN: Warm, dry, no rash. NEURO: Alert and oriented x3. No focal deficits. PSYCH: Normal mood and affect. Course Vital Signs Vital signs: Vital Signs Temperature 98.6 F 10/25/23 19:49 Pulse Rate 71 10/25/23 19:49 Respiratory Rate 15 10/25/23 19:49 Blood Pressure 132/80 10/25/23 19:49 Pulse Oximetry 99 10/25/23 19:49 Temperature 97.5 F L 10/25/23 22:21 Pulse Rate 72 10/25/23 22:21 Respiratory Rate 15 10/25/23 22:21 Blood Pressure 120/88 10/25/23 22:21 Pulse Oximetry 99 10/25/23 22:21 Medical Decision Jenn
[2023-10-25 22:21] VITALS: BP 120/88; PULSE 72; RESP 15; TEMP 36.4; O2SAT 99
== END 2023-10-25 22:21 | disposition home or self-care (01) ==
PROVIDERS: Emergency Provider Physician Assistant; PCP Family Medicine
DX: M70.21 Olecranon bursitis, right elbow (principal); F17.210 Nicotine dependence, cigarettes, uncomplicated; Z98.1 Arthrodesis status; Z90.49 Acquired absence of other specified parts of digestive tract; W22.8XXA Striking against or struck by other objects, initial encounter
CPT/HCPCS: 73080; 99283